=== PATIENT | male | born 1955 | race Caucasian/White ===

== ENCOUNTER → 2022-03-09 09:07 | Outpatient (BNVA) | payer MEDICARE, MEDICAID, SELFPAY | PROVIDERS: PCP Internal Medicine; Referring Provider Internal Medicine; Visit Provider Internal Medicine Cardiovascular Disease | DX: I48.0 Paroxysmal atrial fibrillation (principal); I10 Essential (primary) hypertension; Z86.73 Personal history of transient ischemic attack (TIA), and cerebral infarction without residual deficits; Z79.01 Long term (current) use of anticoagulants; Z79.899 Other long term (current) drug therapy | CPT/HCPCS: 93005; 99212 ==

== ENCOUNTER → 2022-07-29 09:20 | Outpatient (REF) | payer MEDICARE, MEDICAID, SELFPAY ==
--- NOTE | 2022-07-29 09:23 | CA_ITS ---
Transthoracic Echocardiogram Patient (Last, First, Middle): Enrike Benedict, Gender: Male Date of : 1955 Age: 67 Procedure Date: 07/29/2022 Procedure Type: Transthoracic Echocardiogram Location: OP Height: 165.1 cm Weight: 86.18 kg BSA: 1.94 m2 Heart Rate: 58 bpm BP: 120 / 72 mmHg Slag Expander: DOMINIC Referring MD: Barry Alvarez MD Deputy County Clerk: Barry Alvarez MD Symptoms: I48.0 - Paroxysmal atrial fibrillation Study Quality: Adequate ECG Rhythm: Bradycardia Conclusions: - 1. Normal LV systolic function with grade 2 diastolic dysfunction 2. Normal cardiac valvular Doppler 3. No gross pericardial effusion Findings Left Ventricle Normal left ventricular size, thickness, and systolic function. The visually estimated ejection fraction is between 60-65%. Spectral Doppler is indicative of a pseudonormal filling pattern. E/E prime ratio is >15, consistent with elevated filling pressures. Evidence suggests grade II (moderate) diastolic dysfunction. Right Ventricle Normal right ventricular cavity size and systolic function. Atria The left atrium is likely dilated. Interatrial shunt cannot be excluded. The right atrium is normal in size. Aortic Valve The aortic valve structure and function is likely normal. There is no aortic valve stenosis. There is no aortic valve regurgitation. Mitral Valve There is mild anterior and posterior mitral leaflet thickening. There is trace mitral valve regurgitation. There is no mitral valve stenosis. Pulmonic Valve The pulmonic valve was not well visualized. Tricuspid Valve Likely normal tricuspid valve structure and function. Tricuspid regurgitation envelope is inadequate for calculation of right ventricular systolic pressure. Normal right atrial pressure. Great Vessels All visible segments of the aorta are normal in size. The pulmonary artery was not well visualized. Venous The inferior vena cava is normal in size and collapses greater than 50% with inspiration. Pericardium/Pleural There is no evidence of pericardial effusion. Prior Study Comparison Changes noted compared to prior study dated: 08/23/2018. diastolic function appears to be grade 2 on this study Measurements 2D Linear Measurements IVSd: 1.11 0.6-0.9/0.6-1.0 cm LVIDd: 4.67 3.9-5.3/4.2-5.9 cm LVIDd Index: 2.41 2.4-3.2/2.2-3.1 cm/m2 LVIDs: 2.53 2.0-3.6 cm LVPWd: 0.81 0.7-1.1 cm LA Diam: 4.60 2.7-3.8/3.0-4.0 cm LAIDs Index: 2.37 1.5-2.3 cm/m2 LV Mass: 191.85 67-162/88-224 g LV Mass Index: 98.89 43-95/49-115 g/m2 LVOT Diam: 2.00 3.0+(-)1.3 cm 2D Systolic Function EF 4C: 57.00 >55% EF 2C: 67.70 >55% EF BiP: 62.10 >55% Mitral Valve MV Pk E: 0.97 MV PK A: 0.63 MV Decel Time: 140.00 E/A: 1.50 E'Lateral: 5.44 E'Medial: 5.87 E/E' Med: 16.50 E/E' Lat: 17.80 PHT: 41.00 MVA PHT: 5.37 Decel [place]: 6.91 Aortic Valve AoV Pk Cricket: 1.32 AoV Mn Cricket: 0.86 AoV VTI: 0.27 AoV Pk Grad: 7.00 Aov Mn Grad: 4.00 IMER Cont.VTI: 2.61 LVOT LVOT Pk Cricket: 1.07 LVOT Mn Cricket: 0.78 LVOT VTI: 0.22 LVOT Pk Grad: 5.00 LVOT Mn Grad: 3.00 LVOT Diam: 2.00 LVOT Area: 3.14 Diastolic Function MV Pk E: 0.97 MV Pk A: 0.63 E/A: 1.50 E'Medial: 5.87 E/E' Med: 16.50 E' Laterial: 5.44 E/E' Lat: 17.80 Right Ventricle TAPSE (mm): 22.30 TVS' Cricket: 15.50 Tricuspid Valve RA Press: 3.00 Great Vessels Aorta Sinus of Valsalva: 3.30 2.0-3.5 cm Ao Asc: 3.70 2.1-3.4 cm Pulmonary Valve PV Pk Cricekt: 1.28 Peak PV Grad: 7.00 Updated in Other Vendor System with Status of Final Barry Alvarez MD electronically signed on 07/30/2022 12:05:54 PM with status of Final
== END ==
LOC: HO.CARD 09:20
PROVIDERS: Visit Provider Internal Medicine Cardiovascular Disease
DX: I48.0 Paroxysmal atrial fibrillation (principal)
CPT/HCPCS: 93306

== ENCOUNTER 2022-12-30 03:11 | Observation (INO) | payer MEDICARE, MEDICAID, SELFPAY ==
[2022-12-30] VITALS (7 sets, daily range): BP systolic 106–153; BP diastolic 61–82; PULSE 55–70; RESP 9–19; TEMP 36.3–37.1; O2SAT 96–100; BMI 29.1; BMI 29.0
--- NOTE | 2022-12-30 | CA_ITS ---
Acquisition Time: 2022-12-30 12:25:24 Total Exercise Time: 00:05:05 Test Indications: CHEST PAIN Medications: SEE EMAR Protocol: ROBYN Max HR: 115 BPM 74% of Pred: 155 BPM Max BP: 162/080 mmHG Max Work Load: 7.0 METS The patient has nonspecific ST changes at baseline. With exercise, he did not develop any chest discomfort and did not develop any ischemic ECG changes. His functional capacity is fair for his age and this was a submaximal exercise Conclusion: Inconclusive exercise stress test. We will arrange a Lexiscan for the patient. Referred By: Héctor Bolden Overread By: Héctor Bolden
--- NOTE | 2022-12-30 | ECG_ITS ---
Test Reason : CHEST PAIN Blood Pressure : / mmHG Vent. Rate : 065 BPM Atrial Rate : 065 BPM P-R Int : 134 ms QRS Dur : 076 ms QT Int : 428 ms P-R-T Axes : 047 035 049 degrees QTc Int : 445 ms Normal sinus rhythm Nonspecific ST abnormality Abnormal ECG When compared with ECG of 30-JUL-2019 06:28, Premature supraventricular complexes are no longer Present Vent. rate has decreased BY 44 BPM Referred By: Generic ED Physician Electronically Signed By:Héctor Bolden
--- NOTE | 2022-12-30 | ECG_ITS ---
Test Reason : CHEST PAIN Blood Pressure : / mmHG Vent. Rate : 063 BPM Atrial Rate : 063 BPM P-R Int : 130 ms QRS Dur : 084 ms QT Int : 456 ms P-R-T Axes : 036 050 043 degrees QTc Int : 466 ms Normal sinus rhythm Nonspecific ST and T wave abnormality Abnormal ECG When compared with ECG of 30-DEC-2022 05:14, No significant change was found Referred By: Héctor Bolden Electronically Signed By:Héctor Bolden
--- NOTE | 2022-12-30 03:40 | ED.CHESTPAIN ---
HPI - Chest Pain General Chief Complaint: Chest Pain Stated Complaint: cp Time Seen by Provider: 12/30/22 03:30 History of Present Illness HPI narrative: Patient is 67 years old with history of alcohol abuse with history of DTs and seizures, paroxysmal atrial fibrillation on Eliquis with history of cerebellar stroke, hypertension comes here for left-sided chest pain when patient noticed left-sided chest pain while watching TV at rest patient feels heaviness in the chest with no radiation felt short of breath and slight dizzy denies any palpitation ,patient whenever had AFib never felt palpitations also. By the time patient came to the ER chest pain much better now no fever no cough at this time patient feeling much better now patient never had similar pain in the past no palpitation Related Data Home Medications Medication Instructions Recorded Confirmed atorvastatin 80 mg tablet 80 mg PO DAILY 09/07/20 12/27/22 Previous Rx's Medication Instructions Recorded amitriptyline 50 mg tablet 50 mg PO DAILY #90 tabs 11/16/21 apixaban 5 mg tablet (Eliquis) 5 mg PO BID #180 tabs 11/23/21 metoprolol tartrate 100 mg tablet 100 mg PO BID #180 tabs 11/23/21 levetiracetam 500 mg tablet 500 mg PO BID #180 tabs 04/12/22 levothyroxine 50 mcg tablet 50 mcg PO DAILY #90 tabs 04/12/22 temazepam 30 mg capsule 30 mg PO BEDTIME PRN sleep #30 caps 09/19/22 Allergies Allergy/AdvReac Type Severity Reaction Status Date / Time No Known Allergies Allergy Verified 12/27/22 09:34 Review of Systems Review of Systems: Yes all other systems are reviewed and are negative [facility] Past Medical History Medical History Atrial fibrillation Knee pain Paroxysmal atrial fibrillation Surgical History H/O laparoscopy History of ankle surgery History of appendectomy History of cardioversion History of tonsillectomy Family History Family History Father Hypertension Lymphoma Mother Hypertension Stroke Skin cancer Social History [facility] Alcohol intake: never Patient Tobacco Use Status: Never used Tobacco e-Cigarette/Vaping Use: Never Used Second Hand Smoke Exposure: No Advance Directives: No Advance Directives Information Provided: Yes service: No Current occupational status: disabled Cognitive needs: No Hearing needs: No Vision needs: Yes Physical Exam Vital Signs: Vital Signs: Last Vital Signs Temp 97.4 F 12/30/22 04:52 Pulse 62 12/30/22 06:22 Resp 12 12/30/22 06:22 BP 114/63 12/30/22 06:22 Pulse Ox 98 12/30/22 06:22 O2 Del Method 12/30/22 06:22 BMI result Body Mass Index 29.1 Appearance: Alert. Oriented X3. No acute distress. Eyes: PERRLA, No Nystagmus ENT: Pharynx normal. Oral Mucosa moist Neck: Normal inspection. Neck supple. CVS: Normal heart rate and rhythm. Pulses normal. Respiratory: No respiratory distress. Equal air entry bilateral, no wheezing/rales/rhonchi Abdomen: Soft and nontender. Bowel sounds are present, no mass palpable, no CVA tenderness Skin: Skin warm and dry. Normal skin color. Normal skin turgor. Extremities: No lower extremity edema. No calf tenderness Neuro: Oriented X 3. No motor deficit. Medications Administered Discontinued Medications Generic Name Dose Route Start Last Admin Trade Name Freq PRN Reason Stop Dose Admin Aspirin 162 mg 12/30/22 06:11 12/30/22 06:21 Aspirin Enteric Coated 81 Mg Tablet.Dr GRULLON 12/30/22 06:12 162 mg ONCE ONE Administration Medical Decision Making Medical Decision Making MDM Narrative: Patient receives significant alcohol abuse, alcoholic cardiomyopathy with with history of AFib on Eliquis , with history of cerebellar stroke history comes in for chest pain lasted for about 2 hours with with no significant ischemic changes in the EKG except for flat ST segment in infero-lat leads slightly elevated troponin unable to explain cause of chest pain likely ACS will admit patient Differential Diagnosis AFib/ACS/STEMI/non STEMI Consult Healthcare Provider Management of the patient was discussed with: Hospitalist Lab Data MDM Lab Attestation statement: I reviewed the patient's lab results. 12/30/22 03:39 12/30/22 03:39 Labs: Lab Results 12/30/22 12/30/22 12/30/22 Range/Units 03:39 03:39 03:39 WBC 10.1 (4.8-10.8) X10*3/uL RBC 4.38 L (4.60-5.80) X10*6/uL Hgb 13.8 L (14.0-18.0) g/dl Hct 40.3 L (42.0-52.0) % MCV 92.0 (80.0-98.0) fL MCH 31.5 (27.0-33.0) pg MCHC 34.2 (31.0-36.0) g/dl RDW 12.7 (11.0-16.0) % Plt Count 230 (160-400) X10*3/uL MPV 10.1 (9.4-12.4) fL Immature Gran % (Auto) 0.3 (0.0-0.4) % Neut % (Auto) 72.5 (45-73) % Lymph % (Auto) 17.8 L (20-40) % [place] % (Auto) 6.8 (2-11) % Eos % (Auto) 2.1 (0-4) % Baso % (Auto) 0.5 (0-2) % Lymph # (Auto) 1.8 (1.2-4.9) X10*3/uL [place] # (Auto) 0.7 (0.1-1.2) X10*3/uL Eos # (Auto) 0.2 (0.0-0.4) X10*3/uL Baso # (Auto) 0.1 (0.0-0.2) X10*3/uL Abs Immat Gran (auto) 0.03 (0.00-0.03) X10*3/uL Absolute Neuts (auto) 7.3 (2.0-8.3) x10*3/uL Absolute Nucleated RBC 0.000 (0.0-0.012) X10*3/uL Nucleated RBC % (auto) 0.0 (0.0-0.2) /100WBC Sodium 140 (135-145) mmol/L Potassium 4.7 (3.3-5.1) mmol/L Chloride 105 (96-108) mmol/L Carbon Dioxide 16 L (22-29) mmol/L Anion Gap 24 H (12-20) BUN 13 (9-16) mg/dL Creatinine 1.17 (0.5-1.4) mg/dL Estim Creat Clear Calc 61.1 Estimated GFR > 60 Random Glucose 131 H (60-115) mg/dL Calcium 9.4 (8.4-10.2) mg/dL Total Bilirubin 1.0 (0.0-1.0) mg/dL Direct Bilirubin 0.2 (0.0-0.5) mg/dL AST 36 (5-37) U/L ALT 22 (0-40) U/L Alkaline Phosphatase 46 (39-117) U/L Troponin I High Sens 7.7 (<3.5-35.0) ng/L Total Protein 7.5 (6.5-8.0) g/dL Albumin 4.3 (3.5-5.0) g/dL Lipase 28 (8-78) U/L Influenza Type A (PCR) (Negative) Influenza Type B (PCR) (Negative) RSV RNA Qual (PCR) (Negative) SARS-CoV-2 RNA (RT-PCR) (Negative) 12/30/22 12/30/22 Range/Units 03:39 05:19 WBC (4.8-10.8) X10*3/uL RBC (4.60-5.80) X10*6/uL Hgb (14.0-18.0) g/dl Hct (42.0-52.0) % MCV (80.0-98.0) fL MCH (27.0-33.0) pg MCHC (31.0-36.0) g/dl RDW (11.0-16.0) % Plt Count (160-400) X10*3/uL MPV (9.4-12.4) fL Immature Gran % (Auto) (0.0-0.4) % Neut % (Auto) (45-73) % Lymph % (Auto) (20-40) % [place] % (Auto) (2-11) % Eos % (Auto) (0-4) % Baso % (Auto) (0-2) % Lymph # (Auto) (1.2-4.9) X10*3/uL [place] # (Auto) (0.1-1.2) X10*3/uL Eos # (Auto) (0.0-0.4) X10*3/uL Baso # (Auto) (0.0-0.2) X10*3/uL Abs Immat Gran (auto) (0.00-0.03) X10*3/uL Absolute Neuts (auto) (2.0-8.3) x10*3/uL Absolute Nucleated RBC (0.0-0.012) X10*3/uL Nucleated RBC % (auto) (0.0-0.2) /100WBC Sodium (135-145) mmol/L Potassium (3.3-5.1) mmol/L Chloride (96-108) mmol/L Carbon Dioxide (22-29) mmol/L Anion Gap (12-20) BUN (9-16) mg/dL Creatinine (0.5-1.4) mg/dL Estim Creat Clear Calc Estimated GFR Random Glucose (60-115) mg/dL Calcium (8.4-10.2) mg/dL Total Bilirubin (0.0-1.0) mg/dL Direct Bilirubin (0.0-0.5) mg/dL AST (5-37) U/L ALT (0-40) U/L Alkaline Phosphatase (39-117) U/L Troponin I High Sens 12.2 D (<3.5-35.0) ng/L Total Protein (6.5-8.0) g/dL Albumin (3.5-5.0) g/dL Lipase (8-78) U/L Influenza Type A (PCR) NEGATIVE (Negative) Influenza Type B (PCR) NEGATIVE (Negative) RSV RNA Qual (PCR) NEGATIVE (Negative) SARS-CoV-2 RNA (RT-PCR) NEGATIVE (Negative) Independent Interpretation I performed an independent interpretation of an: EKG Interpretation: Normal sinus rhythm heart rate 65 beats per minute no interval normal axis flat ST T wave changes in inferior lateral leads no STEMI Discharge Plan Discharge Clinical Impression: ACS (acute coronary syndrome) Patient Disposition: Admitted As Inpatient
[2022-12-30 03:43] LABS: MANUAL DIFF FLAG NO
[2022-12-30 03:44] LABS: Basophils Absolute Auto 0.1 X10*3/uL (0.0-0.2); Basophils Percent Auto 0.5 % (0-2); Eosinophils Absolute Auto 0.2 X10*3/uL (0.0-0.4); Eosinophils Percent Auto 2.1 % (0-4); Hematocrit 40.3 % (42.0-52.0); Hemoglobin 13.8 g/dl (14.0-18.0); Imm Gran Abs Auto 0.03 X10*3/uL (0.00-0.03); Imm Gran Pct Auto 0.3 % (0.0-0.4); Lymphocytes Absolute Auto 1.8 X10*3/uL (1.2-4.9); Lymphocytes Percent Auto 17.8 % (20-40); Mean Corpuscular HGB Conc 34.2 g/dl (31.0-36.0); Mean Corpuscular Hemoglobin 31.5 pg (27.0-33.0); Mean Platelet Volume 10.1 fL (9.4-12.4); Monocytes Absolute Auto 0.7 X10*3/uL (0.1-1.2); Monocytes Percent Auto 6.8 % (2-11); Neutrophils Absolute Auto 7.3 x10*3/uL (2.0-8.3); Neutrophils Percent Auto 72.5 % (45-73); Platelet Count 230 X10*3/uL (160-400); Red Blood Count 4.38 X10*6/uL (4.60-5.80); Red Cell Distribution Width 12.7 % (11.0-16.0); White Blood Count 10.1 X10*3/uL (4.8-10.8)
[2022-12-30 04:11] LABS: Alanine Aminotransferase 22 U/L (0-40); Albumin Level 4.3 g/dL (3.5-5.0); Alkaline Phosphatase 46 U/L (39-117); Anion Gap 24 (12-20); Aspartate Amino Transferase 36 U/L (5-37); Bilirubin Direct 0.2 mg/dL (0.0-0.5); Blood Urea Nitrogen 13 mg/dL (9-16); Calcium 9.4 mg/dL (8.4-10.2); Carbon Dioxide 16 mmol/L (22-29); Chloride 105 mmol/L (96-108); Creatinine Clr Calc Pharmacy 61.1; Estimated Glomerular Filt Rate > 60; Glucose Random 131 mg/dL (60-115); Lipase 28 U/L (8-78); Potassium 4.7 mmol/L (3.3-5.1); Sodium 140 mmol/L (135-145); Total Protein 7.5 g/dL (6.5-8.0)
[2022-12-30 04:14] LABS: Troponin-I High Sensitivity 7.7 ng/L (<3.5-35.0)
[2022-12-30 04:20] LABS: Influenza A PCR NEGATIVE (Negative); Influenza B PCR NEGATIVE (Negative); Resp Syncy Virus RNA Qual PCR NEGATIVE (Negative); SARS COV2 PCR INHOUSE NEGATIVE (Negative)
--- NOTE | 2022-12-30 05:02 | ECG_ITS ---
Test Reason : REPEAT Blood Pressure : / mmHG Vent. Rate : 058 BPM Atrial Rate : 058 BPM P-R Int : 126 ms QRS Dur : 076 ms QT Int : 454 ms P-R-T Axes : 010 035 049 degrees QTc Int : 445 ms Sinus bradycardia Nonspecific ST abnormality Abnormal ECG When compared with ECG of 30-DEC-2022 03:25, No significant change was found Referred By: All Mcadams Electronically Signed By:Héctor Bolden
[2022-12-30 05:43] LABS: Troponin-I High Sensitivity 12.2 ng/L (<3.5-35.0)
[2022-12-30] MEDS: Aspirin Enteric Coated 81 MG TABLET.DR 162 MG PO (06:21)
--- NOTE | 2022-12-30 08:16 | PHA.MEDREC ---
Pharmacy Consult ? Medication Reconciliation Pharmacy has completed the medication reconciliation.
--- NOTE | 2022-12-30 08:44 | P.HPHOSP_ITS ---
History of Present Illness Date of Service: 12/30/22 Chief Complaint: left sided chest pain This is a 67 yo M with a PMH PAF on Eliquis, Prior cerebellarl CVA in 2018, Diastolic CHF, prior alcohol abuse (last drink 5+ years ago per pt) who presents to the ED with left-sided, pressure like in nature, severe in intensity, non- radiating, which began about 6 hours prior to admission. The patient reports that he sleeps during the day time and is typically awake at night. About 2 AM on the day of admission, he went to check in on his cats and furnace. He reports feeling left-sided chest pain which continued to worsen. Resting did not seem to improve the pain. He states that he last had this type of pain about 2-3 years ago. When the pain did not subside, he decided to come to the ED. He denies chest pain in the interim his last last episode 2-3 years ago. He denies any shortness of breath. Denies any PND or orthopnea. He dneies any palpitations, although he does admit to some dizziness which he states has improved. Currently, he denies any chest pain and states it feels more like soreness. Work up in the ED revealed an EKG with NSR and non-specific ST changes. Troponins increased from 7.7 to 12.2. Given his presentation and baseline history + risk factors, the patient will not be placed under observation with cardiology consult. He has been given asa in the ED. Review of Systems Review of Systems: negative except HPI [facility] Medical History Atrial fibrillation Knee pain Paroxysmal atrial fibrillation Family History Father Hypertension Lymphoma Mother Hypertension Stroke Skin cancer Surgical History H/O laparoscopy History of ankle surgery History of appendectomy History of cardioversion History of tonsillectomy Social History Housing: Condominium Alcohol intake: never Patient Tobacco Use Status: Never used Tobacco e-Cigarette/Vaping Use: Never Used Second Hand Smoke Exposure: No Advance Directives: No Advance Directives Information Provided: Yes service: No Current occupational status: disabled Cognitive needs: No Hearing needs: No Vision needs: Yes Meds Allergies Allergy/AdvReac Type Severity Reaction Status Date / Time No Known Allergies Allergy Verified 12/27/22 09:34 Active Medications: Current Medications Sodium Chloride (0.9 % Sodium Chloride Flush 3 Ml Syringe) [facility] Home Medications Medication Instructions Recorded Confirmed Last Taken Type multivitamin 1 tab PO DAILY 12/30/22 12/30/22 Unknown History thiamine HCl (vitamin B1) 100 mg 100 mg PO DAILY 12/30/22 12/30/22 Unknown History tablet Physical Exam Vital Signs and Narrative: Vital Signs: Last Vital Signs Temp 97.4 F 12/30/22 04:52 Pulse 62 12/30/22 06:22 Resp 12 12/30/22 06:22 BP 114/63 12/30/22 06:22 Pulse Ox 98 12/30/22 06:22 O2 Del Method 12/30/22 06:22 BMI result Body Mass Index 29.1 Const: Other: Constitutional - Awake and Alert, No apparent distress Eyes - PERRLA, EOMI Cardiovascular - S1S2, RRR, No edema Respiratory - Normal lung expansion, Normal respiratory effort, No respiratory distress, CTA bilaterally Gastrointestinal - NT / ND; +BS; No rebound or guarding - No CVA tenderness Extremities - no calf tenderness bilaterally, no swelling Musculoskeletal - Normal inspection, normal ROM Skin - Warm/Dry Neurological - Alert & oriented x3 Psychological - Appropriate affect Results Labs 12/30/22 03:39 12/30/22 03:39 Labs: Laboratory Results - last 24 hr 12/30/22 12/30/22 12/30/22 03:39 03:39 03:39 MCV 92.0 MCH 31.5 MCHC 34.2 RDW 12.7 Plt Count 230 MPV 10.1 Immature Gran % (Auto) 0.3 Neut % (Auto) 72.5 Lymph % (Auto) 17.8 L [place] % (Auto) 6.8 Eos % (Auto) 2.1 Baso % (Auto) 0.5 Lymph # (Auto) 1.8 [place] # (Auto) 0.7 Eos # (Auto) 0.2 Baso # (Auto) 0.1 Abs Immat Gran (auto) 0.03 Absolute Neuts (auto) 7.3 Absolute Nucleated RBC 0.000 Nucleated RBC % (auto) 0.0 Anion Gap 24 H Estim Creat Clear Calc 61.1 Estimated GFR > 60 Random Glucose 131 H Calcium 9.4 Total Bilirubin 1.0 Direct Bilirubin 0.2 AST 36 ALT 22 Alkaline Phosphatase 46 Troponin I High Sens 7.7 Total Protein 7.5 Albumin 4.3 Lipase 28 Influenza Type A (PCR) Influenza Type B (PCR) RSV RNA Qual (PCR) SARS-CoV-2 RNA (RT-PCR) 12/30/22 12/30/22 03:39 05:19 MCV MCH MCHC RDW Plt Count MPV Immature Gran % (Auto) Neut % (Auto) Lymph % (Auto) [place] % (Auto) Eos % (Auto) Baso % (Auto) Lymph # (Auto) [place] # (Auto) Eos # (Auto) Baso # (Auto) Abs Immat Gran (auto) Absolute Neuts (auto) Absolute Nucleated RBC Nucleated RBC % (auto) Anion Gap Estim Creat Clear Calc Estimated GFR Random Glucose Calcium Total Bilirubin Direct Bilirubin AST ALT Alkaline Phosphatase Troponin I High Sens 12.2 D Total Protein Albumin Lipase Influenza Type A (PCR) NEGATIVE Influenza Type B (PCR) NEGATIVE RSV RNA Qual (PCR) NEGATIVE SARS-CoV-2 RNA (RT-PCR) NEGATIVE Assessment and Plan (1) Chest pain: Status: Acute Plan This is a 67 yo M with a PMH PAF on Eliquis, Prior cerebellarl CVA in 2018, , Diastolic CHF, prior alcohol abuse (last drink 5+ years ago per pt) who presents to the ED with left-sided, pressure like in nature, severe in intensity, non- radiating, which began about 6 hours prior to admission. Work up in the ED shows non-specific EKG changes and troponins which are negative. Given his baseline history + presenting symptoms, he will be placed under obs for further monitoring / evaluation. 1. Chest pain unclear etiology, but given risk factors for CAD, will continue with further eval Repeat HS trop-I, monitor on tele, consult cardiology 2. Anion Gap, Metabolic acidosis repeat BMP now 3. Paroxsymal A. Fib previously on amio, but discontinued last year continue metoprolol and eliquis 4. Hypothyroidism synthroid Full Code DVT pptx, Eliquis Time Spent With Patient Time: Total time managing care of this patient today ____ minutes. Quality Stroke Does the patient have a stroke diagnosis?: No VTE Prior VTE?: No VTE Risk Level:: Medical - moderate - high VTE Device Contraindication: Treatment Not Indicated VTE Drug Contraindication: N/A - Med Ordered
[2022-12-30] MEDS: Multivitamin TABLET 1 TAB PO (09:21)
[2022-12-30] MEDS: Thiamine HCL 100 MG TABLET PO (09:21)
[2022-12-30 09:59] LABS: Anion Gap 19 (12-20); Blood Urea Nitrogen 11 mg/dL (9-16); Calcium 9.1 mg/dL (8.4-10.2); Carbon Dioxide 20 mmol/L (22-29); Chloride 106 mmol/L (96-108); Creatinine Clr Calc Pharmacy 77.7; Estimated Glomerular Filt Rate > 60; Glucose Random 76 mg/dL (60-115); Potassium 4.3 mmol/L (3.3-5.1); Sodium 141 mmol/L (135-145)
[2022-12-30 10:07] LABS: Troponin-I High Sensitivity 18.9 ng/L (<3.5-35.0)
--- NOTE | 2022-12-30 11:53 | P.CONCA_ITS ---
History of Present Illness History of Present Illness Date of Service: 12/30/22 Requesting physician: Dmitri Raymundo Chief complaint: cp Narrative: [age] gentleman who is presenting with chest pain. He has background history of paroxysmal atrial fibrillation and has been on apixaban and metoprolol tartrate. He said he woke up at 02:00 which is usual for him and went to feed his mother's cats. He said while doing minimal activities he has suddenly felt chest tightness. He said he laid down but the symptoms were worse with lying down so he was walking around to see if it improves. He said the symptoms lasted at least 2 hours. In this time he came to the emergency department. He did not have any dynamic EKG changes. His high sensitivity troponin levels were normal. He said after couple of hours of chest discomfort his chest pain went away. He has been experiencing reflux like symptoms and burping a lot recently. After discussion with to him for exercise stress test. He was able to exercise for 5 minutes on the treadmill. He had nonspecific ST changes which in fact improved with exercise. He was feeling shortness of breath and fatigue but had no chest tightness. His blood pressure response was also normal. He underwent echocardiography which showed hyperdynamic LV function. Basal inferior wall motion was difficult to rule out. Overall he has been pain-free since his initial presentation. [facility] Past Medical History Medical History Atrial fibrillation Knee pain Paroxysmal atrial fibrillation Family History Family History Father Hypertension Lymphoma Mother Hypertension Stroke Skin cancer Surgical History Surgical History H/O laparoscopy History of ankle surgery History of appendectomy History of cardioversion History of tonsillectomy Social History Social History Housing: Condominium Alcohol intake: never Patient Tobacco Use Status: Never used Tobacco e-Cigarette/Vaping Use: Never Used Second Hand Smoke Exposure: No Advance Directives: No Advance Directives Information Provided: Yes Nutrition Risks: No Nutritional Risk service: No Current occupational status: disabled Cognitive needs: No Hearing needs: No Vision needs: Yes Meds Allergies Allergy/AdvReac Type Severity Reaction Status Date / Time No Known Allergies Allergy Verified 12/27/22 09:34 Active Medications: Current Medications Amitriptyline HCl (Amitriptyline Hcl 50 Mg Tablet) 50 mg PO DAILY [facility] Last Admin: 12/30/22 09:27 Dose: Not Given Apixaban (Apixaban 5 Mg Tablet) 5 mg PO BID [facility] Last Admin: 12/30/22 09:28 Dose: Not Given Levetiracetam (Levetiracetam 500 Mg Tablet) 500 mg PO BID [facility] Last Admin: 12/30/22 09:28 Dose: Not Given Levothyroxine Sodium (Levothyroxine Sodium 50 Mcg Tablet) 50 mcg PO DAILY@0600 [facility] Last Admin: 12/30/22 09:28 Dose: Not Given Metoprolol Tartrate (Metoprolol Tartrate 100 Mg Tablet) 100 mg PO BID [facility]; Protocol Last Admin: 12/30/22 09:21 Dose: Not Given Multivitamins/Vitamin C (Multivitamin Tablet) 1 tab PO DAILY [facility] Last Admin: 12/30/22 09:21 Dose: 1 tab Sodium Chloride (0.9 % Sodium Chloride Flush 3 Ml Syringe) 3 ml IVFLUSH [facility] Thiamine HCl (Thiamine Hcl 100 Mg Tablet) 100 mg PO DAILY [facility] Last Admin: 12/30/22 09:21 Dose: 100 mg Home Medications Medication Instructions Recorded Confirmed Last Taken Type multivitamin 1 tab PO DAILY 12/30/22 12/30/22 Unknown History thiamine HCl (vitamin B1) 100 mg 100 mg PO DAILY 12/30/22 12/30/22 Unknown History tablet Physical Exam Vital Signs: Vital Signs: Last Vital Signs Temp 97.9 F 12/30/22 10:57 Pulse 63 12/30/22 10:57 Resp 17 12/30/22 10:57 BP 106/61 12/30/22 10:57 Pulse Ox 97 12/30/22 10:57 O2 Del Method 12/30/22 10:57 BMI result Body Mass Index 29.1 GENERAL APPEARANCE: in no acute distress, pleasant. NECK: no carotid bruit, no jugular venous distention. SKIN: no suspicious lesions, warm and dry. HEART: no murmurs, regular rate and rhythm. LUNGS: clear to auscultation bilaterally. ABDOMEN: soft, nontender. EXTREMITIES: no edema. PERIPHERAL PULSES: equal. NEUROLOGIC: No gross deficits, AAO X 3 Objective Labs and Meds 12/30/22 03:39 12/30/22 09:36 Lab results: Laboratory Results - last 24 hr 12/30/22 12/30/22 12/30/22 03:39 03:39 03:39 WBC 10.1 RBC 4.38 L Hgb 13.8 L Hct 40.3 L MCV 92.0 MCH 31.5 MCHC 34.2 RDW 12.7 Plt Count 230 MPV 10.1 Immature Gran % (Auto) 0.3 Neut % (Auto) 72.5 Lymph % (Auto) 17.8 L [place] % (Auto) 6.8 Eos % (Auto) 2.1 Baso % (Auto) 0.5 Lymph # (Auto) 1.8 [place] # (Auto) 0.7 Eos # (Auto) 0.2 Baso # (Auto) 0.1 Abs Immat Gran (auto) 0.03 Absolute Neuts (auto) 7.3 Absolute Nucleated RBC 0.000 Nucleated RBC % (auto) 0.0 Sodium 140 Potassium 4.7 Chloride 105 Carbon Dioxide 16 L Anion Gap 24 H BUN 13 Creatinine 1.17 Estim Creat Clear Calc 61.1 Estimated GFR > 60 Random Glucose 131 H Calcium 9.4 Total Bilirubin 1.0 Direct Bilirubin 0.2 AST 36 ALT 22 Alkaline Phosphatase 46 Troponin I High Sens 7.7 Total Protein 7.5 Albumin 4.3 Lipase 28 Influenza Type A (PCR) Influenza Type B (PCR) RSV RNA Qual (PCR) SARS-CoV-2 RNA (RT-PCR) 12/30/22 12/30/22 12/30/22 03:39 05:19 09:36 WBC RBC Hgb Hct MCV MCH MCHC RDW Plt Count MPV Immature Gran % (Auto) Neut % (Auto) Lymph % (Auto) [place] % (Auto) Eos % (Auto) Baso % (Auto) Lymph # (Auto) [place] # (Auto) Eos # (Auto) Baso # (Auto) Abs Immat Gran (auto) Absolute Neuts (auto) Absolute Nucleated RBC Nucleated RBC % (auto) Sodium Potassium Chloride Carbon Dioxide Anion Gap BUN Creatinine Estim Creat Clear Calc Estimated GFR Random Glucose Calcium Total Bilirubin Direct Bilirubin AST ALT Alkaline Phosphatase Troponin I High Sens 12.2 D 18.9 D Total Protein Albumin Lipase Influenza Type A (PCR) NEGATIVE Influenza Type B (PCR) NEGATIVE RSV RNA Qual (PCR) NEGATIVE SARS-CoV-2 RNA (RT-PCR) NEGATIVE 12/30/22 09:36 WBC RBC Hgb Hct MCV MCH MCHC RDW Plt Count MPV Immature Gran % (Auto) Neut % (Auto) Lymph % (Auto) [place] % (Auto) Eos % (Auto) Baso % (Auto) Lymph # (Auto) [place] # (Auto) Eos # (Auto) Baso # (Auto) Abs Immat Gran (auto) Absolute Neuts (auto) Absolute Nucleated RBC Nucleated RBC % (auto) Sodium 141 Potassium 4.3 Chloride 106 Carbon Dioxide 20 L Anion Gap 19 BUN 11 Creatinine 0.92 Estim Creat Clear Calc 77.7 Estimated GFR > 60 Random Glucose 76 Calcium 9.1 Total Bilirubin Direct Bilirubin AST ALT Alkaline Phosphatase Troponin I High Sens Total Protein Albumin Lipase Influenza Type A (PCR) Influenza Type B (PCR) RSV RNA Qual (PCR) SARS-CoV-2 RNA (RT-PCR) Assessment and Plan (1) Chest pain: Status: Acute Plan Pleasant 67 gentleman presenting with chest discomfort. He has background history of paroxysmal atrial fibrillation and has been on Eliquis and metoprolol. EKG had nonspecific ST changes which were new but the last comparison was from 2019. On treadmill he did not have chest discomfort. He mainly stop because of fatigue and shortness of breath. In his day-to-day life he does not exercise at all. So far his biomarker rise has not been impressive. Echocardiography has shown hyperdynamic left ventricular function with question of basal wall motion abnormality in the inferior wall. His blood pressure control is good. I think he can return home and we can arrange a Lexiscan for him as he has functional limitation due to deconditioning. If he develops recurrent pain then he should come back to the hospital. In that case next step will be to do diagnostic angiography. Currently I think his presentation is unlikely to be ACS and likely related to acid reflux. He should be given proton pump inhibitor discharge. Thank you for allowing me to participate in the care of your patient. Please feel free to contact me if you have any questions. Time Spent With Patient Time: Total time managing care of this patient today ____ minutes. Procedures Date of Service Date of Service: 12/30/22
--- NOTE | 2022-12-30 12:29 | CA_ITS ---
Transthoracic Echocardiogram Patient (Last, First, Middle): Enrike Benedict, Gender: Male Date of : 1955 Age: 67 Procedure Date: 12/30/2022 Procedure Type: Transthoracic Echocardiogram Location: ER Height: 165.1 cm Weight: 79.38 kg BSA: 1.87 m2 Heart Rate: 65 bpm BP: 106 / 61 mmHg Integrated Circuit Design Engineer: SB Referring MD: Dmitri Raymundo MD Symptoms: CHEST PAIN Study Quality: Adequate ECG Rhythm: Sinus Conclusions: - Normal left ventricular cavity size. The left ventricular systolic function is hyperdynamic. The visually estimated ejection fraction is >70%. - Elevated filling pressures. - Cannot rule out basal inferior wall motion abnormality. - There is mild dilatation of the ascending aorta measuring 3.90 cm. Findings Left Ventricle Normal left ventricular cavity size. The left ventricular systolic function is hyperdynamic. The visually estimated ejection fraction is >70%. Abnormal diastolic function is noted. Spectral Doppler is indicative of a pseudonormal filling pattern. Elevated filling pressures. There is mild septal asymmetric hypertrophy. Normal global longitudinal strain. Cannot rule out basal inferior wall motion abnormality. Right Ventricle Normal right ventricular cavity size and systolic function. Atria The left atrium is likely dilated. The atrial septum has a dumbell appearance. There is no evidence of interatrial shunt. The right atrium is normal in size. Aortic Valve Normal aortic valve structure and function. There is no aortic valve stenosis. There is no aortic valve regurgitation. Mitral Valve Normal mitral valve structure and function. There is no mitral valve regurgitation. There is no mitral valve stenosis. Pulmonic Valve Normal pulmonic valve structure and function. There is no pulmonic valve regurgitation. Tricuspid Valve Normal tricuspid valve structure and function. There is no tricuspid valve regurgitation. Tricuspid regurgitation envelope is inadequate for calculation of right ventricular systolic pressure. Normal right atrial pressure. Great Vessels There is mild dilatation of the ascending aorta measuring 3.90 cm. The visualized portions of the pulmonary artery and branches are normal. Venous The inferior vena cava is normal in size and collapses greater than 50% with inspiration. Pericardium/Pleural There is no evidence of pericardial effusion. Prior Study Comparison Changes noted compared to prior study dated: 07/29/2022. Hyperdynamic LV function. Cannot rule out basal inferior wall motion abnormality. Measurements 2D Linear Measurements IVSd: 1.22 0.6-0.9/0.6-1.0 cm LVIDd: 4.35 3.9-5.3/4.2-5.9 cm LVIDd Index: 2.33 2.4-3.2/2.2-3.1 cm/m2 LVIDs: 2.26 2.0-3.6 cm LVPWd: 0.95 0.7-1.1 cm LA Diam: 4.40 2.7-3.8/3.0-4.0 cm LAIDs Index: 2.35 1.5-2.3 cm/m2 LV Mass: 202.65 67-162/88-224 g LV Mass Index: 108.37 43-95/49-115 g/m2 LVOT Diam: 2.10 3.0+(-)1.3 cm 2D Systolic Function EF 4C: 71.70 >55% EF 2C: 68.90 >55% EF BiP: 70.10 >55% Mitral Valve MV Pk E: 0.86 MV PK A: 0.50 MV Decel Time: 175.00 E/A: 1.70 E'Lateral: 5.77 E'Medial: 6.20 E/E' Med: 13.80 E/E' Lat: 14.90 PHT: 51.00 MVA PHT: 4.[address] [place]: 4.89 Aortic Valve AoV Pk Cricket: 1.46 AoV Pk Grad: 9.00 IMER: 3.48 LVOT LVOT Pk Cricket: 1.47 LVOT Mn Cricket: 0.95 LVOT VTI: 0.27 LVOT Pk Grad: 9.00 LVOT Mn Grad: 4.00 LVOT Diam: 2.10 LVOT Area: 3.46 Diastolic Function MV Pk E: 0.86 MV Pk A: 0.50 E/A: 1.70 E'Medial: 6.20 E/E' Med: 13.80 E' Laterial: 5.77 E/E' Lat: 14.90 Right Ventricle TAPSE (mm): 19.80 TVS' Cricket: 16.00 Tricuspid Valve RA Press: 3.00 Great Vessels Aorta Sinus of Valsalva: 3.10 2.0-3.5 cm Ao Asc: 3.90 2.1-3.4 cm Ao Desc: 2.80 Pulmonary Valve PV Pk Cricket: 1.30 Peak PV Grad: 7.00 Updated in Other Vendor System with Status of Final Héctor Bolden MD electronically signed on 12/30/2022 2:21:09 PM with status of Final
[2022-12-30] MEDS: 0.9 % Sodium Chloride Flush 3 ML SYRINGE IVFLUSH ×2 (16:15→20:49)
[2022-12-30] MEDS: levETIRAcetam 500 MG TABLET PO (20:48)
[2022-12-30] MEDS: Apixaban 5 MG TABLET PO (20:48)
[2022-12-30] MEDS: Metoprolol Tartrate 100 MG TABLET PO (20:48)
[2022-12-31] VITALS: BP 132/69; PULSE 55; RESP 14; TEMP 36.8; O2SAT 98
[2022-12-31 04:00] VITALS: BP 146/72; PULSE 55; RESP 14; TEMP 36.8; O2SAT 99
[2022-12-31] MEDS: Levothyroxine Sodium 50 MCG TABLET PO (05:20)
[2022-12-31 08:00] VITALS: BP 175/78; PULSE 60; RESP 18; TEMP 36.7; O2SAT 97
--- NOTE | 2022-12-31 08:23 | P.DS_ITS ---
DS: Providers Provider Date of Service: 12/31/22 Date of admission: 12/30/22 08:41 Primary care physician: Reynaldo Agureo MD Consults: 12/30/22 08:41 Consult to Cardiology Routine Consulting Provider: Héctor Bolden Reason for consultation: chest pain, history of a. fib and diastolic chf Attending physician on discharge: Kwasi Infante Discharging clinician: [place] DS: Diagnosis Discharge Diagnosis (1) Chest pain: Status: Acute DS: Summary Hospital Course Hospital Course: This is a 67 yo M with a PMH PAF on Eliquis, Prior cerebellarl CVA in 2018, Diastolic CHF, prior alcohol abuse (last drink 5+ years ago per pt) who presents to the ED with left-sided, pressure like in nature, severe in intensity, non- radiating, which began about 6 hours prior to admission. The patient reports that he sleeps during the day time and is typically awake at night. About 2 AM on the day of admission, he went to check in on his cats and furnace. He reports feeling left-sided chest pain which continued to worsen. Resting did not seem to improve the pain. He states that he last had this type of pain about 2-3 years ago. When the pain did not subside, he decided to come to the ED. He denies chest pain in the interim his last last episode 2-3 years ago. He denies any shortness of breath. Denies any PND or orthopnea. He dneies any palpitations, although he does admit to some dizziness which he states has improved. Currently, he denies any chest pain and states it feels more like soreness. Work up in the ED revealed an EKG with NSR and non-specific ST changes. Troponins increased from 7.7 to 12.2. Given his presentation and baseline history + risk factors, the patient will not be placed under observation with cardiology consult. He has been given asa in the ED. Chest pain. unclear etiology. normal ETT, plan for o/p Lexiscan. cardio rec starting PPI as symptoms may be related to GERD Anion Gap, Metabolic acidosis. Resolved Paroxsymal A. Fib, previously on amio, but discontinued last year. continue metoprolol and eliquis Hypothyroidism. synthroid Time Spent with Patient Time attestation: Total time managing care of this patient today ____ minutes. Discharge coordination time: Greater than 30 minutes Quality: Safe Use of Opioids Does Pt have an Active Cancer Diagnosis on the Problem List?: No Quality: Stroke Does the patient have a stroke diagnosis?: No Physical Exam Vital Signs: Vital Signs: Last Vital Signs Temp 98.1 F 12/31/22 08:00 Pulse 60 12/31/22 08:00 Resp 18 12/31/22 08:00 BP 175/78 H 12/31/22 08:00 Pulse Ox 97 12/31/22 08:00 O2 Del Method 12/31/22 08:00 BMI result Body Mass Index 29.0 Appearing in no acute distress head is normocephalic atraumatic eyes pupils are PERRLA sclera is anicteric mouth throat mucous membranes are intact and moist neck is supple no lymphadenopathy, no JVD noted lung sounds are clear to auscultation heart regular rate rhythm, clear S1, S2 positive bowel sounds, abdomen is soft, nontender neuro patient is alert x3, no focal deficits DS: Data Data Completed and Pending Labs on day of discharge: Laboratory Results - last 24 hr 12/30/22 12/30/22 09:36 09:36 Sodium 141 Potassium 4.3 Chloride 106 Carbon Dioxide 20 L Anion Gap 19 BUN 11 Creatinine 0.92 Estim Creat Clear Calc 77.7 Estimated GFR > 60 Random Glucose 76 Calcium 9.1 Troponin I High Sens 18.9 D Discharge Plan Discharge Anticipated Discharge Date/Time: 12/31/22 08:21 Patient Disposition: Home, Self-Care Discharge Diagnosis: Chest pain Referrals: Reynaldo Aguero MD [Primary Care Provider] - 1 Week Héctor Bolden MD [Physician] - 1 Week Discharge Medications: Continued amitriptyline 50 mg tablet 50 mg PO DAILY Qty: 90 8RF Eliquis 5 mg tablet 5 mg PO BID Qty: 180 8RF metoprolol tartrate 100 mg tablet 100 mg PO BID Qty: 180 8RF levothyroxine 50 mcg tablet 50 mcg PO DAILY Qty: 90 8RF levetiracetam 500 mg tablet 500 mg PO BID Qty: 180 8RF temazepam 30 mg capsule 30 mg PO BEDTIME PRN (Reason: sleep) Qty: 30 5RF multivitamin Tablet 1 tab PO DAILY thiamine HCl (vitamin B1) 100 mg Tablet 100 mg PO DAILY Discharge Orders: Discharge Order (Routine); Ordered 12/31/22 Ordered By: [place] East Diet: Advance to usual diet Activity on Discharge: As tolerated Stand Alone Forms: Patient Portal Discharge page Care Plan Goals: NO further episodes of chest pain Health Concerns: Chest pain Plan of Treatment: Follow up with senior storage administrator for further outpatient workup Assessment: See discharge summary
[2022-12-31] MEDS: levETIRAcetam 500 MG TABLET PO (08:42)
[2022-12-31] MEDS: 0.9 % Sodium Chloride Flush 3 ML SYRINGE IVFLUSH (08:42)
[2022-12-31] MEDS: Multivitamin TABLET 1 TAB PO (08:42)
[2022-12-31] MEDS: Metoprolol Tartrate 100 MG TABLET PO (08:42)
[2022-12-31] MEDS: Apixaban 5 MG TABLET PO (08:42)
[2022-12-31] MEDS: Amitriptyline HCl 50 MG TABLET PO (08:42)
[2022-12-31] MEDS: Thiamine HCL 100 MG TABLET PO (08:42)
--- NOTE | 2022-12-31 10:07 | PC.NURSE ---
Patient refused EKG ordered for this morning, requested discharge paperwork stating his ride is waiting and will leave shortly.
--- NOTE | 2022-12-31 10:36 | MHC.CM.PN ---
MD order for D/C prior to CM interview. MD order for home, self care. CM acknowledge.
== END 2022-12-31 10:39 | disposition home or self-care (01) ==
LOC: HO.ED 07:23 → HO.EDOVER 08:47 → HO.IMC 16:14
PROVIDERS: Admitting Provider Family Medicine; Emergency Provider Internal Medicine; PCP Internal Medicine Medical Oncology; Visit Provider Nurse Practitioner Acute Care
DX: R07.9 Chest pain, unspecified (principal); I48.0 Paroxysmal atrial fibrillation; E03.9 Hypothyroidism, unspecified; M25.569 Pain in unspecified knee; I11.0 Hypertensive heart disease with heart failure; I50.32 Chronic diastolic (congestive) heart failure; Z86.73 Personal history of transient ischemic attack (TIA), and cerebral infarction without residual deficits; Z20.822 Contact with and (suspected) exposure to COVID-19
CPT/HCPCS: 0241U; 36415; 80048; 80076; 83690; 84484; 85025; 93005; 93017; 93306; 99222; 99285

== ENCOUNTER 2023-05-25 13:18 | Outpatient (AMB) | payer MEDICARE, MEDICAID, SELFPAY ==
[2023-05-25 13:39] VITALS: BP 148/72; PULSE 135; BMI 28.6
--- NOTE | 2023-05-25 13:39 | A.OFFVIS_ITS ---
Intake Vital Signs 05/25/23 13:39 Height 5 ft 5 in Weight 171 lb 15.369 oz BMI 28.6 BP 148/72 H Pulse 135 H Intake Visit Reasons: overdue follow-up dx afib Intake Note: overdue folow up dx afib Electronic Coils Supervisor Required: No Allergies No Known Allergies Allergy (Verified 05/25/23 13:49) HPI overdue follow-up dx afib HPI Details Enrike is a 67-year-old male with past medical history of hypertension, hyperlipidemia, paroxysmalatrial fibrillation who was recently admitted to [facility] with chest discomfort and palpitations. He was found to have recurrent atrial fibrillation which was initially treated with rate control and then he underwent a cardioversion on 03/14/2023. He was discharged on increased dose of metoprolol. Today he reports that his 1st cardioversion lasted a week then he had recurrent AFib. He went back to [facility] and had a 2nd cardioversion. He tells me he was then started on amiodarone loading dose and is now on 200 mg daily. He can feel heart palpitations and shortness of breath with activity. No chest discomfort, dizziness, presyncope, syncope, falls. No PND, orthopnea or edema. He said overall he feels like crap which he believes is from the amiodarone load. he says he has been feeling a little better in the last few days now that he is on the 200 mg daily. Continues on metoprolol 100 mg b.i.d. He has been taking Eliquis with out any interruption. No bleeding issues reported. He says he was scheduled for cardioversion with Dr. Toth however he canceled it because he wanted to have it here at this hospital. [facility] Medical History Atrial fibrillation Knee pain Paroxysmal atrial fibrillation Surgical History H/O laparoscopy History of ankle surgery History of appendectomy History of cardioversion History of tonsillectomy Family History Father Hypertension Lymphoma Mother Hypertension Stroke Skin cancer Social History Housing: Condominium Alcohol intake: never Patient Tobacco Use Status: Never used Tobacco e-Cigarette/Vaping Use: Never Used Second Hand Smoke Exposure: No service: No Current occupational status: disabled Cognitive needs: No Hearing needs: No Vision needs: Yes Review of Systems Const All systems reviewed & are unremarkable except as noted in HPI and below ENT Reports dizziness Card Denies chest pain, Denies chest pain at rest, Denies chest pain with activity, Denies rapid heart rate, Denies pedal edema, Denies edema, Denies leg edema, Denies lightheadedness, Reports palpitations, Denies dyspnea, Reports dyspnea on exertion and Denies orthopnea Resp Denies cough, Denies dyspnea and Reports dyspnea on exertion GI Denies hematochezia and Denies change in stool character Musc Denies abnormal gait, Reports limited range of motion, Reports muscle cramps, Denies muscle weakness, Denies numbness, Denies radiating pain into limb, Denies stiffness and Denies tingling Neuro Denies abnormal gait, Reports dizziness, Denies numbness and Denies tingling Endo Reports palpitations Physical Exam Vital Signs: Last Vital Signs Pulse 135 H 05/25/23 13:39 BMI result Body Mass Index 28.6 Const General: cooperative, comfortable and no acute distress Orientation/consciousness: patient oriented x3 Neck Neck: Yes normal visual inspection Resp Effort & Inspection: normal respiratory effort Auscultation: clear to auscultation bilaterally, no crackles, no rales, no r honchi and no wheezes Cardio Jugular venous distension: no JVD Rate: tachycardic Rhythm: abnormal rhythm Heart sounds: S1 normal heart sound present, S2 normal heart sound present, no murmurs and no rubs Neuro General: patient oriented x3 Extrem General: Yes normal to inspection Psych Appearance: grossly normal Mental Status: mental status grossly normal Speech and movement: Normal speech and movement present Office Procedures EKG Details: Today, read by me, atrial flutter with variable AV block, right axis, ST abnormality inferior lateral leads suggesting ischemia, rate 135, QTC 483 mi llisecond however unclear accuracy as flutter waves make interpretation difficult [id number], Complete Assessment & Plan Assessment & Plan (1) Atrial fibrillation: Code(s): I48.91 - Unspecified atrial fibrillation Plan: history of paroxysmal atrial fibrillation previously controlled with metoprolol and on Eliquis for anticoagulation. [facility] admission in March with AFib RVR initially treated with rate control then underwent cardioversion back to normal sinus rhythm. He tells me he was continued on his usual metoprolol dose. He says that he maintained normal sinus rhythm for 1 week and then had recurrent palpitations. He presented again to [facility] where he again underwent cardioversion. He was started on amiodarone load and is now on maintenance dose. EKG today showing atrial flutter with variable AV block, rate 135, ischemia can not be excluded. no reports of chest pain. He continues to feel heart palpitations and has some shortness of breath. An echo was done at [facility] showing EF 55-60%, no regional wall motion abnormalities. At this time he is on amiodarone 200 mg daily and metoprolol tartrate 100 mg b.i.d.. He is on Eliquis 5 mg b.i.d. which he tells me has been on interrupted in the last [address] Alvarez. Will plan cardioversion in the near future. Cardioversion may hold now that he his loaded with anti arrhythmic. Reviewed with patient and he is agreeable to this plan. He does have issues with transportation and will try to work on getting a ride for a cardioversion this week. Instructed on light physical activity while his heart rates are elevated. Emergency care if needed for symptoms. Cardiology follow-up 2 weeks post cardioversion. will plan for AFib ablation going forward. (2) Atrial flutter: Code(s): I48.92 - Unspecified atrial flutter Plan: now with atrial flutter (3) Hypertension: Code(s): I10 - Essential (primary) hypertension Plan: adequately controlled at present. No med changes today Orders: Orders Cardioversion Today I48.92 - Unspecified atrial flutter Coding Level of Care Code Est Pt Level 4 (29647) Diagnoses Atrial fibrillation I48.91 Atrial flutter I48.92 Hypertension I10 CPT Codes EKG - CPT: 98840-[id number], Complete ([id number]) Time Spent (min) 30 Comment Chart review, documentation, interview, assessment
== END 2023-05-25 14:24 | disposition home or self-care (01) ==
PROVIDERS: Visit Provider Nurse Practitioner Family
DX: I48.91 Unspecified atrial fibrillation (principal); I48.92 Unspecified atrial flutter; I10 Essential (primary) hypertension
CPT/HCPCS: 93010; 99214

== ENCOUNTER → 2023-05-25 13:18 | Outpatient (BNVA) | payer MEDICARE, MEDICAID, SELFPAY | PROVIDERS: Visit Provider Nurse Practitioner Family | DX: I48.0 Paroxysmal atrial fibrillation (principal); I48.92 Unspecified atrial flutter; I10 Essential (primary) hypertension; Z79.01 Long term (current) use of anticoagulants; Z79.899 Other long term (current) drug therapy | CPT/HCPCS: 93005; 99212 ==

== ENCOUNTER 2023-06-07 08:05 | Day surgery (SDC) | payer MEDICARE, MEDICAID, SELFPAY ==
[2023-06-05 10:54] VITALS: BMI 28.6
--- NOTE | 2023-06-06 12:11 | HO.ANESPROP2 ---
Documented by User: Shirley Polo NP 06/06/23 12:13 HPI - Anesthesia Eval Consult details Narrative: 68yo M for Cardioversion Eliquis for afib PMFSH Active Problems Active Problems: All Active Problems (Updated 06/05/23 @ 10:55 by Caprice Bustillo RN) Prostatism (Acute) Hypertension (Acute) Obesity (Acute) Hypothyroidism (Acute) Physical exam (Acute) Hyperlipidemia (Acute) Atrial flutter (Acute) Paroxysmal atrial fibrillation (Acute) Knee pain (Acute) Atrial fibrillation (Acute) Past Medical History Medical History (Updated 06/07/23 @ 08:43 by Anisha Walker RN) Atrial fibrillation HTN (hypertension) Hypothyroid Knee pain Paroxysmal atrial fibrillation Stroke TIA (transient ischemic attack) Family History Family History Father Hypertension Lymphoma Mother Hypertension Stroke Skin cancer Surgical History Surgical History (Updated 06/05/23 @ 10:55 by Caprice Bustillo RN) H/O laparoscopy History of ankle surgery History of appendectomy History of cardioversion History of tonsillectomy Social History Social History Housing: Condominium Alcohol intake: never Patient Tobacco Use Status: Never used Tobacco e-Cigarette/Vaping Use: Never Used Second Hand Smoke Exposure: No Use of substances other than those prescribed or required for medical reasons: No Are you DNR?: No Advance Directives: No Advance Directives Information Provided: Yes service: No Current occupational status: disabled Cognitive needs: No Hearing needs: No Vision needs: Yes Meds Allergies Allergy/AdvReac Type Severity Reaction Status Date / Time aspirin AdvReac Stomach Verified 06/07/23 08:18 Upset Home Medications Medication Instructions Recorded Confirmed Last Taken Type multivitamin 1 tab PO DAILY 12/30/22 06/07/23 Unknown History thiamine HCl (vitamin B1) 100 mg 100 mg PO DAILY 12/30/22 06/07/23 Unknown History tablet aspirin 81 mg capsule,delayed 81 mg PO DAILY 06/07/23 06/07/23 Unknown History release Exam Exam Date and Time: June 06, 2023 121 Height,Weight and Vital Signs: Height 5 ft 5 in Weight 78.018 kg Pertinent Lab Results Pertinent Lab Results: Laboratory Tests 12/30/22 12/30/22 03:39 09:36 WBC 10.1 Hgb 13.8 L Hct 40.3 L Plt Count 230 Sodium 141 Potassium 4.3 Chloride 106 Carbon Dioxide 20 L BUN 11 Creatinine 0.92 Narrative Narrative: EKG 05/2023 trial flutter with variable AV block, right axis, ST abnormality inferior lateral leads suggesting ischemia,? rate 135, QTC 483 millisecond however unclear accuracy as flutter waves make interpretation difficult ECHO 12/2022 Conclusions: - Normal left ventricular cavity size.? The left ventricular ? ? systolic function is hyperdynamic.? The visually estimated ? ? ? ejection fraction is >70%. ? - Elevated filling pressures.? - Cannot rule out basal inferior wall motion abnormality.? - There is mild dilatation of the ascending aorta measuring 3.90 cm.? Assessment and Plan Assessment Anesthesia Assessment: Chart Reviewed Documented by User: Myrna Lu MD 06/07/23 08:46 PMFSH Past Medical History Medical History (Updated 06/07/23 @ 08:43 by Anisha Walker RN) Atrial fibrillation HTN (hypertension) Hypothyroid Knee pain Paroxysmal atrial fibrillation Stroke TIA (transient ischemic attack) Family History Family History Father Hypertension Lymphoma Mother Hypertension Stroke Skin cancer Family history of problems with anesthesia: No Surgical History Surgical History (Updated 06/05/23 @ 10:55 by Caprice Bustillo RN) H/O laparoscopy History of ankle surgery History of appendectomy History of cardioversion History of tonsillectomy History of Problems with Anesthesia: No Social History Social History Housing: Condominium Alcohol intake: never Patient Tobacco Use Status: Never used Tobacco e-Cigarette/Vaping Use: Never Used Second Hand Smoke Exposure: No Use of substances other than those prescribed or required for medical reasons: No Are you DNR?: No Advance Directives: No Advance Directives Information Provided: Yes service: No Current occupational status: disabled Cognitive needs: No Hearing needs: No Vision needs: Yes Meds Allergies Allergy/AdvReac Type Severity Reaction Status Date / Time aspirin AdvReac Stomach Verified 06/07/23 08:18 Upset Home Medications Medication Instructions Recorded Confirmed Last Taken Type multivitamin 1 tab PO DAILY 12/30/22 06/07/23 Unknown History thiamine HCl (vitamin B1) 100 mg 100 mg PO DAILY 12/30/22 06/07/23 Unknown History tablet aspirin 81 mg capsule,delayed 81 mg PO DAILY 06/07/23 06/07/23 Unknown History release Exam Airway Mallampati Class: II TM Dist: >3cm Neck ROM: Full Heart: irreg Lungs: cta Assessment and Plan Assessment Anesthesia Assessment: Anesthesia Plan Discussed Final Anesthetic Review Family History of Problems with Anesthesia: No History of Problems with Anesthesia: No NPO: Yes ASA Class: III Final Preanesthetic Review: No Changes in Pt Med Stat, Meds/Allgs Chart Reviewed and Consent Obtained/Reviewed Patient Risk: Intermediate Procedure Risk: Intermediate Anesthetic Plan Anesthetic Plan: MAC: Disposition: Standard PACU
[2023-06-07] VITALS (7 sets, daily range): BP systolic 93–151; BP diastolic 62–93; PULSE 60–121; RESP 16–17; TEMP 36.8–36.9; O2SAT 94–98
--- NOTE | 2023-06-07 08:30 | MHC.SHP ---
Pre-Procedural Eval Section A Date of Service: 06/07/23 The patient is an INPATIENT: No Changes since office visit: Yes Changes in Medication and Yes Patient answered all questions; No Cold of Flu in the past 2 weeks and No New Medical Problems Section B Chief Complaint: Unspecified atrial flutter Allergies: Allergies Allergy/AdvReac Type Severity Reaction Status Date / Time aspirin AdvReac Stomach Verified 06/07/23 08:18 Upset Plan I have reviewed the history and physical and performed a pertinent physical examination on my patient. No changes have occurred unless specified. Time Spent With Patient Time: Total time managing care of this patient today ____ minutes.
[2023-06-07] MEDS: Lactated Ringers 1,000 ML 50 ML IVCONT (08:44)
--- NOTE | 2023-06-07 10:01 | ECG_ITS ---
Test Reason : S/P CARDIOVWESION Blood Pressure : / mmHG Vent. Rate : 061 BPM Atrial Rate : 061 BPM P-R Int : 158 ms QRS Dur : 082 ms QT Int : 420 ms P-R-T Axes : 047 064 122 degrees QTc Int : 422 ms Poor data quality, interpretation may be adversely affected Normal sinus rhythm ST & T wave abnormality, consider lateral ischemia Abnormal ECG When compared with ECG of 30-DEC-2022 14:18, T wave inversion now evident in Lateral leads Referred By: Barry Alvarez Electronically Signed By:BARRY ALVAREZ MD
--- NOTE | 2023-06-07 10:11 | HO.CARDIVERS ---
Cardioversion Procedure Note Cardioversion Date of Procedure: Today Ordering Provider: Ana María Burnett Performing Provider: Myself Indication for Procedure: Persistent rapid atrial fibrillation Pre-Op Diagnosis: Same Post-Op Diagnosis: Sinus rhythm Performed with Transesophageal Echo: No History: See prior office note Consent: Verbal and Written consent was obtained from the patient before starting and after confirming oral anticoagulation use. The patient was made aware of the risk of synchronized cardioversion including benefits and alternatives Procedure: After consent obtained, cardioversion pads were attached in anteroposterior configuration and the patient was sedated by the anesthesia team. Once adequate sedation achieved, patient was delivered 200 joules of biphasic synchronized energy in anteroposterior configuration Complications: None Impression: Successful conversion to sinus rhythm Recommendations: 1. Continue amiodarone and oral anticoagulation 2. Twelve lead EKG 3. Follow up in the office in 2-4 weeks
== END 2023-06-07 11:24 | disposition home or self-care (01) ==
PROVIDERS: PCP Internal Medicine; Visit Provider Internal Medicine Cardiovascular Disease
PROC: 5A2204Z Restoration of Cardiac Rhythm, Single (ICD-10-PCS; principal; 2023-06-07 09:40)
DX: I48.19 Other persistent atrial fibrillation (principal); I48.92 Unspecified atrial flutter; Z79.01 Long term (current) use of anticoagulants; I10 Essential (primary) hypertension; E78.5 Hyperlipidemia, unspecified; Z79.899 Other long term (current) drug therapy
CPT/HCPCS: 92960; 93005

== ENCOUNTER → 2023-06-07 08:05 | Outpatient (BNV) | payer MEDICARE, MEDICAID, SELFPAY | PROVIDERS: PCP Internal Medicine; Visit Provider Internal Medicine Cardiovascular Disease | DX: I48.19 Other persistent atrial fibrillation (principal) | CPT/HCPCS: 92960 ==

== ENCOUNTER 2023-06-18 04:18 | Emergency (ER) | payer MEDICARE, MEDICAID, SELFPAY ==
--- NOTE | 2023-06-18 | ECG_ITS ---
Test Reason : CHEST PAIN Blood Pressure : / mmHG Vent. Rate : 061 BPM Atrial Rate : 061 BPM P-R Int : 178 ms QRS Dur : 086 ms QT Int : 464 ms P-R-T Axes : 056 046 064 degrees QTc Int : 467 ms Sinus rhythm with marked sinus arrhythmia Nonspecific ST and T wave abnormality Prolonged QT Abnormal ECG When compared with ECG of 07-JUN-2023 10:08, Nonspecific T wave abnormality now evident in Anterior leads Referred By: Generic ED Physician Electronically Signed By:SONIA CROW
[2023-06-18 04:25] VITALS: BP 170/100; PULSE 74; O2SAT 97
[2023-06-18 04:58] VITALS: BP 185/102; PULSE 63; RESP 13; TEMP 37.2; O2SAT 96; BMI 28.3
[2023-06-18 05:05] LABS: Basophils Absolute Auto 0.1 X10*3/uL (0.0-0.2); Basophils Percent Auto 0.8 % (0-2); Eosinophils Absolute Auto 0.2 X10*3/uL (0.0-0.4); Eosinophils Percent Auto 2.5 % (0-4); Hematocrit 40.3 % (42.0-52.0); Hemoglobin 13.6 g/dl (14.0-18.0); Imm Gran Abs Auto 0.02 X10*3/uL (0.00-0.03); Imm Gran Pct Auto 0.3 % (0.0-0.4); Lymphocytes Absolute Auto 1.1 X10*3/uL (1.2-4.9); Lymphocytes Percent Auto 16.8 % (20-40); MANUAL DIFF FLAG NO; Mean Corpuscular HGB Conc 33.7 g/dl (31.0-36.0); Mean Corpuscular Hemoglobin 32.7 pg (27.0-33.0); Mean Corpuscular Volume 96.9 fL (80.0-98.0); Mean Platelet Volume 9.8 fL (9.4-12.4); Monocytes Absolute Auto 0.6 X10*3/uL (0.1-1.2); Monocytes Percent Auto 8.6 % (2-11); Neutrophils Absolute Auto 4.6 x10*3/uL (2.0-8.3); Platelet Count 192 X10*3/uL (160-400); Red Blood Count 4.16 X10*6/uL (4.60-5.80); Red Cell Distribution Width 13.2 % (11.0-16.0); White Blood Count 6.4 X10*3/uL (4.8-10.8)
[2023-06-18 05:11] LABS: INTERNATIONAL NORM RATIO 1.4 (0.9-1.1); Prothrombin Time 16.7 SEC (11.1-13.3)
[2023-06-18 05:20] LABS: Alanine Aminotransferase 17 U/L (0-40); Albumin Level 4.2 g/dL (3.5-5.0); Alkaline Phosphatase 68 U/L (39-117); Anion Gap 18 (12-20); Aspartate Amino Transferase 19 U/L (5-37); Bilirubin Total 0.6 mg/dL (0.0-1.0); Blood Urea Nitrogen 13 mg/dL (9-16); Calcium 9.5 mg/dL (8.4-10.2); Carbon Dioxide 20 mmol/L (22-29); Chloride 104 mmol/L (96-108); Estimated Glomerular Filt Rate > 60; Glucose Random 116 mg/dL (60-115); Potassium 4.4 mmol/L (3.3-5.1); Sodium 138 mmol/L (135-145); Total Protein 7.6 g/dL (6.5-8.0)
[2023-06-18 05:26] LABS: Troponin-I High Sensitivity < 2.7 ng/L (<3.5-35.0)
--- NOTE | 2023-06-18 05:29 | ED_ITS ---
HPI - Chest Pain General Chief Complaint: Chest Pain Stated Complaint: Anxiety? Time Seen by Provider: 06/18/23 05:29 Source: patient Mode of arrival: ambulatory Limitations: no limitations History of Present Illness HPI narrative: Patient with history of paroxysmal atrial fibrillation on Eliquis and metoprolol had cardioversion last week feeling good woke up from sleep felt that heart was racing fast and he came here also feeling same but heart rate was in 60s anxious and panic feels tired whole-body weakness occasional cough no significant shortness of breath Related Data Home Medications Medication Instructions Recorded Confirmed multivitamin 1 tab PO DAILY 12/30/22 06/07/23 thiamine HCl (vitamin B1) 100 mg 100 mg PO DAILY 12/30/22 06/07/23 tablet aspirin 81 mg capsule,delayed 81 mg PO DAILY 06/07/23 06/07/23 release Previous Rx's Medication Instructions Recorded levetiracetam 500 mg tablet 500 mg PO BID #180 tabs 04/12/22 amitriptyline 50 mg tablet 50 mg PO DAILY #90 tabs 01/02/23 levothyroxine 50 mcg tablet 50 mcg PO DAILY #90 tabs 01/27/23 apixaban 5 mg tablet (Eliquis) 5 mg PO BID #180 tabs 02/14/23 metoprolol tartrate 100 mg tablet 100 mg PO BID #180 tabs 02/14/23 temazepam 30 mg capsule 30 mg PO BEDTIME PRN sleep #30 caps 04/06/23 Allergies Allergy/AdvReac Type Severity Reaction Status Date / Time aspirin AdvReac Stomach Verified 06/07/23 08:18 Upset Review of Systems Review of Systems: Yes all other systems are reviewed and are negative [facility] Past Medical History Medical History Atrial fibrillation HTN (hypertension) Hypothyroid Knee pain Paroxysmal atrial fibrillation Seizure Stroke TIA (transient ischemic attack) Surgical History H/O laparoscopy History of ankle surgery History of appendectomy History of cardioversion History of tonsillectomy Family History Family History Father Hypertension Lymphoma Mother Hypertension Stroke Skin cancer Social History [facility] Alcohol intake: never Patient Tobacco Use Status: Never used Tobacco Smoked in Last 30 Days: No e-Cigarette/Vaping Use: Never Used Second Hand Smoke Exposure: No Use of substances other than those prescribed or required for medical reasons: No Advance Directives: No Advance Directives Information Provided: Yes service: No Current occupational status: disabled Cognitive needs: No Hearing needs: No Vision needs: Yes Physical Exam Vital Signs: Vital Signs: Last Vital Signs Temp 98.9 F 06/18/23 04:58 Pulse 63 06/18/23 04:58 Resp 13 06/18/23 04:58 BP 185/102 H 06/18/23 04:58 Pulse Ox 96 06/18/23 04:58 O2 Del Method Room Air 06/18/23 04:58 BMI result Body Mass Index 28.3 Appearance: Alert. Oriented X3. No acute distress. Anxious Eyes: PERRLA, No Nystagmus ENT: Pharynx normal. Oral Mucosa moist Neck: Normal inspection. Neck supple. CVS: Normal heart rate and rhythm. Pulses normal. Respiratory: No respiratory distress. Equal air entry bilateral, no wheezing/rales/rhonchi Abdomen: Soft and nontender. Bowel sounds are present, no mass palpable, no CVA tenderness Skin: Skin warm and dry. Normal skin color. Normal skin turgor. Extremities: No lower extremity edema. No calf tenderness Neuro: Oriented X 3. No motor deficit. No sensory deficit.No cerebellar signs , cranial nerves II-XII intact Medications Administered Discontinued Medications Generic Name Dose Route Start Last Admin Trade Name Constantineq PRN Reason Stop Dose Admin Meclizine HCl 25 mg 06/18/23 06:02 06/18/23 06:08 Meclizine Hcl 25 Mg Tablet PO 06/18/23 06:03 25 mg ONCE ONE Administration Medical Decision Making Medical Decision Making MDM Narrative: Patient with episode of palpitation questionable AFib by the time patient arrived in sinus rhythm also patient was anxious labs are stable cardiac enzymes negative will discharge patient home advised to continue his medication and follow with fleet assistant no cardiac arrhythmias noted during stay in the ER discharge patient home advised to continue metoprolol Lab Data [facility] Lab Attestation statement: I reviewed the patient's lab results. 06/18/23 04:38 06/18/23 04:38 Labs: Lab Results 06/18/23 06/18/23 06/18/23 Range/Units 04:38 04:38 04:38 WBC 6.4 (4.8-10.8) X10*3/uL RBC 4.16 L (4.60-5.80) X10*6/uL Hgb 13.6 L (14.0-18.0) g/dl Hct 40.3 L (42.0-52.0) % MCV 96.9 (80.0-98.0) fL MCH 32.7 (27.0-33.0) pg MCHC 33.7 (31.0-36.0) g/dl RDW 13.2 (11.0-16.0) % Plt Count 192 (160-400) X10*3/uL MPV 9.8 (9.4-12.4) fL Immature Gran % (Auto) 0.3 (0.0-0.4) % Neut % (Auto) 71.0 (45-73) % Lymph % (Auto) 16.8 L (20-40) % Linn % (Auto) 8.6 (2-11) % Eos % (Auto) 2.5 (0-4) % Baso % (Auto) 0.8 (0-2) % Lymph # (Auto) 1.1 L (1.2-4.9) X10*3/uL Linn # (Auto) 0.6 (0.1-1.2) X10*3/uL Eos # (Auto) 0.2 (0.0-0.4) X10*3/uL Baso # (Auto) 0.1 (0.0-0.2) X10*3/uL Abs Immat Gran (auto) 0.02 (0.00-0.03) X10*3/uL Absolute Neuts (auto) 4.6 (2.0-8.3) x10*3/uL Absolute Nucleated RBC 0.000 (0.0-0.012) X10*3/uL Nucleated RBC % (auto) 0.0 (0.0-0.2) /100WBC PT (11.1-13.3) SEC INR (0.9-1.1) Sodium 138 (135-145) mmol/L Potassium 4.4 (3.3-5.1) mmol/L Chloride 104 (96-108) mmol/L Carbon Dioxide 20 L (22-29) mmol/L Anion Gap 18 (12-20) BUN 13 (9-16) mg/dL Creatinine 1.07 (0.5-1.4) mg/dL Estim Creat Clear Calc 65.0 Estimated GFR > 60 Random Glucose 116 H (60-115) mg/dL Calcium 9.5 (8.4-10.2) mg/dL Total Bilirubin 0.6 (0.0-1.0) mg/dL AST 19 (5-37) U/L ALT 17 (0-40) U/L Alkaline Phosphatase 68 (39-117) U/L Troponin I High Sens < 2.7 D (<3.5-35.0) ng/L Total Protein 7.6 (6.5-8.0) g/dL Albumin 4.2 (3.5-5.0) g/dL 06/18/23 Range/Units 04:38 WBC (4.8-10.8) X10*3/uL RBC (4.60-5.80) X10*6/uL Hgb (14.0-18.0) g/dl Hct (42.0-52.0) % MCV (80.0-98.0) fL MCH (27.0-33.0) pg MCHC (31.0-36.0) g/dl RDW (11.0-16.0) % Plt Count (160-400) X10*3/uL MPV (9.4-12.4) fL Immature Gran % (Auto) (0.0-0.4) % Neut % (Auto) (45-73) % Lymph % (Auto) (20-40) % Linn % (Auto) (2-11) % Eos % (Auto) (0-4) % Baso % (Auto) (0-2) % Lymph # (Auto) (1.2-4.9) X10*3/uL Linn # (Auto) (0.1-1.2) X10*3/uL Eos # (Auto) (0.0-0.4) X10*3/uL Baso # (Auto) (0.0-0.2) X10*3/uL Abs Immat Gran (auto) (0.00-0.03) X10*3/uL Absolute Neuts (auto) (2.0-8.3) x10*3/uL Absolute Nucleated RBC (0.0-0.012) X10*3/uL Nucleated RBC % (auto) (0.0-0.2) /100WBC PT 16.7 H (11.1-13.3) SEC INR 1.4 H (0.9-1.1) Sodium (135-145) mmol/L Potassium (3.3-5.1) mmol/L Chloride (96-108) mmol/L Carbon Dioxide (22-29) mmol/L Anion Gap (12-20) BUN (9-16) mg/dL Creatinine (0.5-1.4) mg/dL Estim Creat Clear Calc Estimated GFR Random Glucose (60-115) mg/dL Calcium (8.4-10.2) mg/dL Total Bilirubin (0.0-1.0) mg/dL AST (5-37) U/L ALT (0-40) U/L Alkaline Phosphatase (39-117) U/L Troponin I High Sens (<3.5-35.0) ng/L Total Protein (6.5-8.0) g/dL Albumin (3.5-5.0) g/dL Independent Interpretation I performed an independent interpretation of an: EKG Interpretation: Normal sinus rhythm heart rate 61 beats per minute PACs nonspecific ST-T changes no acute ischemia Discharge Plan Discharge Clinical Impression: Paroxysmal atrial fibrillation Patient Disposition: Home, Self-Care Instructions: A-fib (Atrial Fibrillation) (ED) Additional Instructions: Continue medications as prescribed by fleet assistant and Eliquis Report to ER/fleet assistant if palpitation episode continue for too long with passing out episode Prescriptions: No Action levetiracetam 500 mg tablet 500 mg PO BID Qty: 180 8RF amitriptyline 50 mg tablet 50 mg PO DAILY Qty: 90 8RF levothyroxine 50 mcg tablet 50 mcg PO DAILY Qty: 90 8RF metoprolol tartrate 100 mg tablet 100 mg PO BID Qty: 180 8RF Eliquis 5 mg tablet 5 mg PO BID Qty: 180 8RF temazepam 30 mg capsule 30 mg PO BEDTIME PRN (Reason: sleep) Qty: 30 5RF multivitamin Tablet 1 tab PO DAILY thiamine HCl (vitamin B1) 100 mg Tablet 100 mg PO DAILY aspirin 81 mg Capsule,Delayed Release(Dr/Ec) 81 mg PO DAILY
[2023-06-18] MEDS: Meclizine HCl 25 MG TABLET PO (06:08)
[2023-06-18 07:00] LABS: COVID-19 Test Negative (Negative); IDNOW Serial# BCCEAD1C
== END 2023-06-18 08:41 | disposition home or self-care (01) ==
PROVIDERS: Emergency Provider Internal Medicine; PCP Internal Medicine
DX: I48.0 Paroxysmal atrial fibrillation (principal); R07.89 Other chest pain; F41.1 Generalized anxiety disorder; F43.0 Acute stress reaction; Z20.822 Contact with and (suspected) exposure to COVID-19; Z20.828 Contact with and (suspected) exposure to other viral communicable diseases; Z79.01 Long term (current) use of anticoagulants; Z79.899 Other long term (current) drug therapy
CPT/HCPCS: 36415; 80053; 84484; 85025; 85610; 87635; 93005; 99284

== ENCOUNTER → 2023-06-18 04:37 | Outpatient (BNV) | payer MEDICARE, MEDICAID, SELFPAY | PROVIDERS: Emergency Provider Internal Medicine; PCP Internal Medicine; Visit Provider Internal Medicine | DX: I49.9 Cardiac arrhythmia, unspecified (principal) | CPT/HCPCS: 93010 ==

== ENCOUNTER 2023-07-11 14:15 | Outpatient (AMB) | payer MEDICARE, MEDICAID, SELFPAY ==
--- NOTE | 2023-07-11 14:19 | MHC.OFFVIS ---
Intake Vital Signs 07/11/23 14:20 Height 5 ft 5 in Weight 185 lb 10.067 oz BMI 30.9 BP 140/84 H Blood Pressure Location Lt brachial Position Sitting Pulse 64 Pulse Source Monitor Intake Visit Reasons: Follow up post cardioversion Intake Note: Follow up with EKG after cardioversion Blood Bank Credit Clerk Required: No Accompanied by: Self / Same As Patient Allergies aspirin Adverse Reaction (Verified 07/11/23 14:23) Stomach Upset Medication List - Last Reconciled 07/11/23 by Ana María Burnett, [employer] amitriptyline 50 mg PO DAILY apixaban (Eliquis) 5 mg PO BID levetiracetam 500 mg PO BID levothyroxine 50 mcg PO DAILY metoprolol tartrate 100 mg PO BID multivitamin 1 tab PO DAILY temazepam 30 mg PO BEDTIME PRN thiamine HCl (vitamin B1) 100 mg PO DAILY PFSH Medical History Atrial fibrillation HTN (hypertension) Hypothyroid Knee pain Paroxysmal atrial fibrillation Seizure Stroke TIA (transient ischemic attack) Surgical History H/O laparoscopy History of ankle surgery History of appendectomy History of cardioversion History of tonsillectomy Family History Father Hypertension Lymphoma Mother Hypertension Stroke Skin cancer Social History Housing: Condominium Alcohol intake: never Patient Tobacco Use Status: Never used Tobacco e-Cigarette/Vaping Use: Never Used Second Hand Smoke Exposure: No service: No Current occupational status: disabled Cognitive needs: No Hearing needs: No Vision needs: Yes Review of Systems Const Details: Recent word searching, tremors, blurred vision, admits to being mostly sedentary All systems reviewed & are unremarkable except as noted in HPI and below Denies weakness ENT Denies dizziness Card Denies chest pain, Denies chest pain with activity, Denies syncope, Denies rapid heart rate, Denies pedal edema, Denies edema, Denies leg edema, Denies lightheadedness, Denies palpitations, Denies dyspnea, Denies dyspnea on exertion and Denies orthopnea Resp Denies cough, Denies dyspnea and Denies dyspnea on exertion GI Denies hematochezia and Denies change in stool character Musc Details: No weakness of extremities however does report tremors Denies abnormal gait, Denies muscle cramps, Denies muscle weakness, Denies numbness, Denies radiating pain into limb and Denies tingling Neuro Denies abnormal gait, Denies dizziness, Denies syncope, Denies numbness, Denies tingling and Denies weakness Endo Denies palpitations Physical Exam Vital Signs: Last Vital Signs Pulse 64 07/11/23 14:20 BP 140/84 H 07/11/23 14:20 BMI result Body Mass Index 30.9 Const General: cooperative and no acute distress Orientation/consciousness: patient oriented x3 HEENT Other: Right-sided facial droop noted. Tongue midline. No difficulty swallowing reported. Neck Neck: Yes normal visual inspection Resp Effort & Inspection: normal respiratory effort Auscultation: clear to auscultation bilaterally, no rales, no rhonchi and no wheezes Cardio Jugular venous distension: no JVD Rate: regular rate Rhythm: regular rhythm Heart sounds: S1 normal heart sound present, S2 normal heart sound present, no murmurs and no rubs Neuro General: patient oriented x3 Extrem Other: Appears to move all extremities normally General: Yes normal to inspection Psych Mental Status: mental status grossly normal Office Procedures EKG Details: Today, read by me, sinus rhythm with marked sinus arrhythmia, QTC 482 milliseconds, rate 64 [id number], Complete Assessment & Plan Assessment & Plan (1) Atrial fibrillation: Code(s): I48.91 - Unspecified atrial fibrillation Plan: history of paroxysmal atrial fibrillation previously controlled with metoprolol and on Eliquis for anticoagulation. [facility] admission in March with AFib RVR initially treated with rate control then underwent cardioversion back to normal sinus rhythm. He tells me he was continued on his usual metoprolol dose. He says that he maintained normal sinus rhythm for 1 week and then had recurrent palpitations. He presented again to [facility] where he again underwent cardioversion. He was started on amiodarone load and is now on maintenance dose. EKG today showing atrial flutter with variable AV block, rate 135, ischemia can not be excluded. no reports of chest pain. He continues to feel heart palpitations and has some shortness of breath. An echo was done at [facility] showing EF 55-60%, no regional wall motion abnormalities. At this time he is on amiodarone 200 mg daily and metoprolol tartrate 100 mg b.i.d.. He is on Eliquis 5 mg b.i.d. which he tells me has been on interrupted in the last [address] Alvarez. Will plan cardioversion in the near future. Cardioversion may hold now that he his loaded with anti arrhythmic. Reviewed with patient and he is agreeable to this plan. He does have issues with transportation and will try to work on getting a ride for a cardioversion this week. Instructed on light physical activity while his heart rates are elevated. Emergency care if needed for symptoms. Cardiology follow-up 2 weeks post cardioversion. will plan for AFib ablation going forward. (2) Atrial flutter: Code(s): I48.92 - Unspecified atrial flutter Plan: now with atrial flutter (3) Hypertension: Code(s): I10 - Essential (primary) hypertension Plan: adequately controlled at present. No med changes today Coding Level of Care Code Est Pt Level 5 (30614) Diagnoses Atrial fibrillation I48.91 Atrial flutter I48.92 Hypertension I10 CPT Codes EKG - CPT: [id number], Complete ([id number]) Time Spent (min) 35 Comment Chart review, documentation, interview, assessment, ED report, MD discussion
[2023-07-11 14:20] VITALS: BP 140/84; PULSE 64; BMI 30.9
== END 2023-07-11 15:23 | disposition home or self-care (01) ==
PROVIDERS: PCP Internal Medicine; Referring Provider Internal Medicine; Visit Provider Nurse Practitioner Family
DX: I48.91 Unspecified atrial fibrillation (principal); I48.92 Unspecified atrial flutter; I10 Essential (primary) hypertension
CPT/HCPCS: 93010; 99215

== ENCOUNTER 2023-07-11 15:36 | Emergency (ER) | payer MEDICARE, MEDICAID, SELFPAY ==
--- NOTE | ~2023-07-11 | CT_ITS ---
EXAMINATION: CT ANGIOGRAM HEAD CT ANGIOGRAM NECK CLINICAL INFORMATION: Reason for Exam left sided facial droop, + change in speech, hx of COMPARISON: Same day noncontrast head CT, CTA head and neck 01/23/2018 TECHNIQUE: Test bolus sequences followed by intravenous administration 70 mL of Omnipaque 350. Helical imaging was performed in the axial plane from the aortic arch to the skull vertex. Delayed postcontrast imaging of the head was also performed. The data was processed at the instrument technologist's workstation for generation of MIP sequences. Angled MIPs and volume rendered reformatted images were also generated at an offline 3D workstation. Stenoses are assessed in accordance with NASCET criteria unless otherwise indicated. DLP: 1547 mGy-cm This CT examination was performed using dose optimization techniques as appropriate, variously including the following: *Automated exposure control. *Adjustment of mA and/or kV according to patient size (this includes techniques or standardized protocols for targeted exams where dose is matched to indication/reason for exam; i.e. extremities or head). *Use of iterative reconstruction technique. FINDINGS: CT Head: There is no evidence of acute intracranial hemorrhage or edematous territorial infarction. A few foci of hypoattenuation in the periventricular and deep white matter are consistent with mild microangiopathy. Chronic left superior cerebellar infarct. Prajapati-white matter differentiation is preserved. Proportional prominence of the ventricles and sulcal spaces. No evidence for obstructive hydrocephalus. No abnormal mass effect or midline shift. No extra-axial fluid collections. Stable chronic hyperdensity involving the anterior right subinsular region which may represent a cavernoma. No pathologic intra-axial enhancement or regional oligemia. No acute soft tissue or osseous abnormalities. The mastoid air cells and paranasal sinuses are clear. CT Neck: The thyroid gland and remaining cervical soft tissues are within normal limits. Multilevel cervical spondylosis. Chronic-appearing height loss involving multiple upper thoracic vertebral bodies. CT Upper Chest: The visualized lung apices and upper mediastinum are within normal limits. Coronary artery calcifications Neck CTA: Aortic Arch: Normal contour and caliber. Classic 3 vessel branching pattern of the aortic arch. Great Vessel Origins: No significant stenosis of the branch origins. Right Common Carotid Artery: No focal stenosis or occlusion. Cervical Right Internal Carotid Artery: Calcific atherosclerotic disease of the carotid bulb and proximal internal carotid artery causing less than 50% stenosis. Left Common Carotid Artery: No focal stenosis or occlusion. Cervical Left Internal Carotid Artery: Calcific atherosclerotic disease of the carotid bulb and proximal internal carotid artery causing less than 50% stenosis. Cervical Right Vertebral Artery: Dominant. No focal stenosis or occlusion. Cervical Left Vertebral Artery: No focal stenosis or occlusion. Brain CTA: Intracranial Internal Carotid Arteries: Calcific atherosclerotic disease of the intracranial internal carotid arteries without occlusion or flow-limiting stenosis. Right Anterior Cerebral Artery: Normal A1 segment. Normal opacification of the distal JEOV[place] segments. Left Anterior Cerebral Artery: Normal A1 segment. Normal opacification of the distal [place] segments. Anterior Communicating Artery: Normal. Right Middle Cerebral Artery: Normal M1 segment of the MCA without focal stenosis or occlusion. Normal arborization of the distal segments. Left Middle Cerebral Artery: Normal M1 segment of the MCA without focal stenosis or occlusion. Normal arborization of the distal segments. Right Vertebral Artery: Normal V4 segment. Left Vertebral Artery: Normal V4 segment. Basilar Artery: Normal without focal stenosis or occlusion. Normal appearance of the proximal superior cerebellar arteries. Right Posterior Cerebral Artery: Normal P1 segment. Normal opacification of the distal [place]ASHIER segments. Left Posterior Cerebral Artery: Normal P1 segment. Normal opacification of the distal [place]ASHIER segments. Normal opacification of the superior sagittal, straight, transverse, and sigmoid sinuses. CT/CT angio head neck stroke IMPRESSION: No arterial high grade stenosis or large vessel occlusion in the head or neck. Above impression was communicated to Dr Unger on 07/11/2023 5:36 PM
--- NOTE | ~2023-07-11 | CT_ITS ---
EXAMINATION: CT HEAD WITHOUT CONTRAST CLINICAL INFORMATION: Difficulty word finding, vision changes. COMPARISON: 04/26/[address] scan. TECHNIQUE: Contiguous axial imaging was performed from the skull base to vertex without intravenous administration of contrast. Coronal and sagittal reformatted images were obtained. This CT examination was performed using dose optimization techniques as appropriate, variously including the following: *Automated exposure control *Adjustment of mA and/or kV according to patient size (this includes techniques or standardized protocols for targeted exams where dose is matched to indication/reason for exam; i.e. extremities or head) *Use of iterative reconstruction technique DLP: 649 mGy-cm FINDINGS: There is mild widening of the cortical sulci and associated ventriculomegaly. The lateral ventricles are symmetrical. The third and fourth ventricles are in their normal midline position. The basilar and prepontine cisterns are unremarkable. Mild periventricular microvascular changes are seen. Calcifications near the right insular cortex have not significantly changed. There is no acute intra or extracerebral abnormality. There is no mass effect or midline shift. Sections through the bony calvarium are unremarkable. The orbits are intact. The paranasal sinuses are clear. The mastoid air cells are clear. CT/CT head/brain wo IV con IMPRESSION: No acute intracranial pathology.
[2023-07-11 15:41] VITALS: BP 130/79; PULSE 53; RESP 20; TEMP 36.9; O2SAT 94; BMI 29.1
--- NOTE | 2023-07-11 15:42 | ED.GENADULT ---
HPI - General Adult General Chief complaint: General Medical Stated complaint: sent down from Cardio / stroke like symptoms Time Seen by Provider: 07/11/23 16:09 Related Data Home Medications Medication Instructions Recorded Confirmed multivitamin 1 tab PO DAILY 12/30/22 07/11/23 thiamine HCl (vitamin B1) 100 mg 100 mg PO DAILY 12/30/22 07/11/23 tablet amitriptyline 50 mg tablet 50 mg PO BEDTIME 07/11/23 07/11/23 levetiracetam 500 mg tablet 500 mg PO DAILY 07/11/23 07/11/23 Previous Rx's Medication Instructions Recorded levothyroxine 50 mcg tablet 50 mcg PO DAILY #90 tabs 01/27/23 apixaban 5 mg tablet (Eliquis) 5 mg PO BID #180 tabs 02/14/23 temazepam 30 mg capsule 30 mg PO BEDTIME PRN sleep #30 caps 04/06/23 metoprolol tartrate 100 mg tablet 100 mg PO BID #180 tabs 06/27/23 amiodarone 200 mg tablet 200 mg PO DAILY #90 tabs 07/11/23 Allergies Allergy/AdvReac Type Severity Reaction Status Date / Time aspirin AdvReac Stomach Verified 07/11/23 14:23 Upset PMFSH Past Medical History Medical History Atrial fibrillation HTN (hypertension) Hypothyroid Knee pain Paroxysmal atrial fibrillation Seizure Stroke TIA (transient ischemic attack) Surgical History H/O laparoscopy History of ankle surgery History of appendectomy History of cardioversion History of tonsillectomy Family History Family History Father Hypertension Lymphoma Mother Hypertension Stroke Skin cancer Social History Social History Housing: Condominium Alcohol intake: never Patient Tobacco Use Status: Never used Tobacco e-Cigarette/Vaping Use: Never Used Second Hand Smoke Exposure: No service: No Current occupational status: disabled Cognitive needs: No Hearing needs: No Vision needs: Yes Physical Exam ED Vital Signs: Vital Signs - 24 hr 07/11/23 15:41 Temperature 98.5 F Pulse Rate 53 Respiratory Rate 20 Blood Pressure 130/79 Pulse Oximetry 94 Oxygen Delivery Method Room Air BMI result Body Mass Index 29.1 Course Course Course Narrative: This is a rapid medical exam: Additional HPI, ROS, PE not included below will be deferred to primary provider. Patient is a 68-year-old male presenting to the emergency department from cardiology for concern of a stroke. They report patient had some difficulty with word finding, but patient states that has been going on for weeks. Also reports blurred vision with distance for several weeks. Denies any headache or other pain. Denies any focal weakness. Plan: Patient brought back to room in main ED; CT head ordered Medications Administered Discontinued Medications Generic Name Dose Route Start Last Admin Trade Name Freq PRN Reason Stop Dose Admin Iohexol 100 ml 07/11/23 17:23 07/11/23 17:24 Iohexol 350 Mg/Ml 100 Ml Infus..Btl IV 07/11/23 17:24 70 ml ONCE ONE Administration Medical Decision Making Lab Data 07/11/23 16:41 07/11/23 16:41 Labs: Lab Results 07/11/23 07/11/23 07/11/23 Range/Units 16:41 16:41 16:41 WBC 8.9 (4.8-10.8) X10*3/uL RBC 3.91 L (4.60-5.80) X10*6/uL Hgb 13.0 L (14.0-18.0) g/dl Hct 38.4 L (42.0-52.0) % MCV 98.2 H (80.0-98.0) fL MCH 33.2 H (27.0-33.0) pg MCHC 33.9 (31.0-36.0) g/dl RDW 13.2 (11.0-16.0) % Plt Count 195 (160-400) X10*3/uL MPV 10.2 (9.4-12.4) fL Immature Gran % (Auto) 0.4 (0.0-0.4) % Neut % (Auto) 63.5 (45-73) % Lymph % (Auto) 22.6 (20-40) % [place] % (Auto) 9.7 (2-11) % Eos % (Auto) 3.1 (0-4) % Baso % (Auto) 0.7 (0-2) % Lymph # (Auto) 2.0 (1.2-4.9) X10*3/uL [place] # (Auto) 0.9 (0.1-1.2) X10*3/uL Eos # (Auto) 0.3 (0.0-0.4) X10*3/uL Baso # (Auto) 0.1 (0.0-0.2) X10*3/uL Abs Immat Gran (auto) 0.04 H (0.00-0.03) X10*3/uL Absolute Neuts (auto) 5.7 (2.0-8.3) x10*3/uL Absolute Nucleated RBC 0.000 (0.0-0.012) X10*3/uL Nucleated RBC % (auto) 0.0 (0.0-0.2) /100WBC PT (11.1-13.3) SEC INR (0.9-1.1) Sodium 141 (135-145) mmol/L Potassium 3.9 (3.3-5.1) mmol/L Chloride 103 (96-108) mmol/L Carbon Dioxide 29 (22-29) mmol/L Anion Gap 13 (12-20) BUN 14 (9-16) mg/dL Creatinine 1.11 (0.5-1.4) mg/dL Estim Creat Clear Calc 63.5 Estimated GFR > 60 Random Glucose 100 (60-115) mg/dL Calcium 10.1 D (8.4-10.2) mg/dL Total Bilirubin 0.5 (0.0-1.0) mg/dL AST 31 (5-37) U/L ALT 33 (0-40) U/L Alkaline Phosphatase 68 (39-117) U/L Troponin I High Sens < 2.7 (<3.5-35.0) ng/L Total Protein 7.7 (6.5-8.0) g/dL Albumin 4.4 (3.5-5.0) g/dL Urine Color Urine Appearance Urine pH (5.0-9.0) Ur Specific [place] (1.005-1.025) Urine Protein (Neg-Trace) mg/dL Urine Glucose (UA) (Negative) mg/dL Urine Ketones (Negative) mg/dL Urine Blood (Negative) Urine Nitrite (Negative) Ur Leukocyte Esterase (Negative) 07/11/23 07/11/23 Range/Units 16:41 19:18 WBC (4.8-10.8) X10*3/uL RBC (4.60-5.80) X10*6/uL Hgb (14.0-18.0) g/dl Hct (42.0-52.0) % MCV (80.0-98.0) fL MCH (27.0-33.0) pg MCHC (31.0-36.0) g/dl RDW (11.0-16.0) % Plt Count (160-400) X10*3/uL MPV (9.4-12.4) fL Immature Gran % (Auto) (0.0-0.4) % Neut % (Auto) (45-73) % Lymph % (Auto) (20-40) % [place] % (Auto) (2-11) % Eos % (Auto) (0-4) % Baso % (Auto) (0-2) % Lymph # (Auto) (1.2-4.9) X10*3/uL [place] # (Auto) (0.1-1.2) X10*3/uL Eos # (Auto) (0.0-0.4) X10*3/uL Baso # (Auto) (0.0-0.2) X10*3/uL Abs Immat Gran (auto) (0.00-0.03) X10*3/uL Absolute Neuts (auto) (2.0-8.3) x10*3/uL Absolute Nucleated RBC (0.0-0.012) X10*3/uL Nucleated RBC % (auto) (0.0-0.2) /100WBC PT 12.9 D (11.1-13.3) SEC INR 1.1 (0.9-1.1) Sodium (135-145) mmol/L Potassium (3.3-5.1) mmol/L Chloride (96-108) mmol/L Carbon Dioxide (22-29) mmol/L Anion Gap (12-20) BUN (9-16) mg/dL Creatinine (0.5-1.4) mg/dL Estim Creat Clear Calc Estimated GFR Random Glucose (60-115) mg/dL Calcium (8.4-10.2) mg/dL Total Bilirubin (0.0-1.0) mg/dL AST (5-37) U/L ALT (0-40) U/L Alkaline Phosphatase (39-117) U/L Troponin I High Sens (<3.5-35.0) ng/L Total Protein (6.5-8.0) g/dL Albumin (3.5-5.0) g/dL Urine Color Yellow Urine Appearance Clear Urine pH 8.0 (5.0-9.0) Ur Specific [place] >= 1.030 H (1.005-1.025) Urine Protein Negative (Neg-Trace) mg/dL Urine Glucose (UA) Negative (Negative) mg/dL Urine Ketones Negative (Negative) mg/dL Urine Blood Negative (Negative) Urine Nitrite Negative (Negative) Ur Leukocyte Esterase Negative (Negative) Radiology Impression Discussion of test interpretation with radiology: I discussed test interpretation with the radiologist (CTA negative for LVO of head) Discharge Plan Discharge Clinical Impression: Paroxysmal atrial fibrillation, Acute CVA (cerebrovascular accident) Patient Disposition: Home, Self-Care Instructions: Ischemic Stroke (DC) Prescriptions: No Action levothyroxine 50 mcg tablet 50 mcg PO DAILY Qty: 90 8RF Eliquis 5 mg tablet 5 mg PO BID Qty: 180 8RF temazepam 30 mg capsule 30 mg PO BEDTIME PRN (Reason: sleep) Qty: 30 5RF metoprolol tartrate 100 mg tablet 100 mg PO BID Qty: 180 8RF multivitamin Tablet 1 tab PO DAILY thiamine HCl (vitamin B1) 100 mg Tablet 100 mg PO DAILY levetiracetam 500 mg tablet 500 mg PO DAILY amitriptyline 50 mg tablet 50 mg PO BEDTIME amiodarone 200 mg tablet 200 mg PO DAILY Qty: 90 3RF Referrals: Grecia Lewis MD [Physician] - 07/13/23 Interventions: ED Discharge Assessment Last Done: 07/12/23 10:22 Discharge Date/Time: 07/11/23 20:00
--- NOTE | 2023-07-11 15:48 | ECG_ITS ---
Test Reason : STROKE LIKE SYMPTOMS Blood Pressure : / mmHG Vent. Rate : 060 BPM Atrial Rate : 060 BPM P-R Int : 158 ms QRS Dur : 086 ms QT Int : 478 ms P-R-T Axes : 054 062 041 degrees QTc Int : 478 ms Normal sinus rhythm Nonspecific ST abnormality Abnormal ECG When compared with ECG of 18-JUN-2023 04:37, Nonspecific T wave abnormality, improved in Anterolateral leads Referred By: Geraldine Herr Electronically Signed By:KIESHA OLGUIN
--- NOTE | 2023-07-11 16:12 | ED_ITS ---
HPI - General Adult General Chief complaint: General Medical Stated complaint: sent down from Cardio / stroke like symptoms Time Seen by Provider: 07/11/23 16:09 History of Present Illness HPI narrative: Patient is a 68-year-old male with a history of atrial fibrillation atrial flutter currently on Eliquis history of multiple strokes in the past. History of RI in the past. Presents today with having facial droop on the left side difficulty finding words it has been ongoing for approximately 1-2 weeks. Patient went to see his supervisor [facility] [employer] today. Sent him down for further evaluat ion of his symptoms. He has been episcop[employer] in taking his medication. Patient denies any chest pain any diaphoresis she with a fever any chills. No coughing or congestion or upper respiratory symptoms. No changes in medication. No gross new weaknesses in the upper and lower extremity. Claims he could not find the right words. This is been ongoing for about 2 weeks. Related Data Home Medications Medication Instructions Recorded Confirmed multivitamin 1 tab PO DAILY 12/30/22 07/11/23 thiamine HCl (vitamin B1) 100 mg 100 mg PO DAILY 12/30/22 07/11/23 tablet Previous Rx's Medication Instructions Recorded levetiracetam 500 mg tablet 500 mg PO BID #180 tabs 04/12/22 amitriptyline 50 mg tablet 50 mg PO DAILY #90 tabs 01/02/23 levothyroxine 50 mcg tablet 50 mcg PO DAILY #90 tabs 01/27/23 apixaban 5 mg tablet (Eliquis) 5 mg PO BID #180 tabs 02/14/23 temazepam 30 mg capsule 30 mg PO BEDTIME PRN sleep #30 caps 04/06/23 metoprolol tartrate 100 mg tablet 100 mg PO BID #180 tabs 06/27/23 amiodarone 200 mg tablet 200 mg PO DAILY #90 tabs 07/11/23 Allergies Allergy/AdvReac Type Severity Reaction Status Date / Time aspirin AdvReac Stomach Verified 07/11/23 14:23 Upset Review of Systems Review of Systems: Positive facial droop positive difficulty finding the correct words Yes all other systems are reviewed and are negative [facility] [place] Past Medical History Medical History Atrial fibrillation HTN (hypertension) Hypothyroid Knee pain Paroxysmal atrial fibrillation Seizure Stroke TIA (transient ischemic attack) Surgical History H/O laparoscopy History of ankle surgery History of appendectomy History of cardioversion History of tonsillectomy Family History Family History Father Hypertension Lymphoma Mother Hypertension Stroke Skin cancer Social History Social History Housing: Condominium Alcohol intake: never Patient Tobacco Use Status: Never used Tobacco e-Cigarette/Vaping Use: Never Used Second Hand Smoke Exposure: No Advance Directives: No Advance Directives Information Provided: Yes service: No Current occupational status: disabled Cognitive needs: No Hearing needs: No Vision needs: Yes Physical Exam ED Vital Signs: Vital Signs - 24 hr 07/11/23 15:41 Temperature 98.5 F Pulse Rate 53 Respiratory Rate 20 Blood Pressure 130/79 Pulse Oximetry 94 Oxygen Delivery Method Room Air BMI result Body Mass Index 29.1 Appearance: Alert. Oriented X3. No acute distress. Eyes: Pupils equal, round and reactive to light. ENT: Pharynx normal. Neck: Normal inspection. Neck supple. No lymph nodes noted. No crepitus CVS: Normal heart rate and rhythm. Pulses normal. Normal S1 and S2 Respiratory: No respiratory distress. Breath sounds normal. No Wheezing. No rales Abdomen: Soft and nontender. No rigidity. No distention. good BS x4 Skin: Skin warm and dry. Normal skin color. Normal skin turgor. Extremities: No lower extremity edema. Neurovascular intact to all extremities. No Lacerations. No Rash Neuro: Oriented X 3. No motor deficit. No sensory deficit. Moving all extermities. No gross slurred speech. Slight facial droop noted on the left side when compared to the right. Covering the entire side of the face. NIH Stroke Scale Internal: Initial- Upon Arrival Time: 16:15 Level of Consciousness: Alert Level of Consciousness Questions: Answers both questions correctly Level of Consciousness Commands: Performs both tasks correctly Best Gaze: Normal Visual: No visual loss Facial Palsy: Minor paralyis Motor Arm (Right): No drift Motor Arm (Left): No drift Motor Leg (Right): No drift Motor Leg (Left): No drift Limb Ataxia: Absent Sensory: Normal Best Language: No aphasia Dysarthia: Mild to moderate dysarthria Extinction and Inattention: No abnormality Score: 2 Medications Administered Discontinued Medications Generic Name Dose Route Start Last Admin Trade Name Ana PRN Reason Stop Dose Admin Iohexol 100 ml 07/11/23 17:23 07/11/23 17:24 Iohexol 350 Mg/Ml 100 Ml Infus..Btl IV 07/11/23 17:24 70 ml ONCE ONE Administration Medical Decision Making Medical Decision Making [facility] Narrative: Patient is a 68-year-old male a history of atrial flutter history of AFib on Eliquis presented today with having left-sided weakness that is been ongoing for over week along with some slurred speech. CT scan of the head was done my interpretation the CT scan of the head was negative for any acute evidence of bleeding. You with the finding noted by Radiology. CTA of the head was negative for any acute evidence of large vessel occlusion. The finding was discussed by Dr. Unger with the radiologist. My interpretation of patient's EKG showed a sinus rhythm heart rate is 60 AR QRS QTC within normal limits there is no acute ST segment elevation. Patient's sugar was over 100 there is no evidence for hypoglycemia. Given the symptom is greater than 48 hours not a candidate for endovascular intervention. Patient is on Eliquis not a candidate for tPA. Will consult hospitalist for admission. Repeat exam is grossly unchanged Differential Diagnosis Intracranial bleed, large vessel occlusion, mass Admission/Observation Consideration of admission/observation: Escalation of care including admission/observation considered Consult Healthcare Provider Management of the patient was discussed with: Hospitalist Lab Data [facility] Lab Attestation statement: I reviewed the patient's lab results. 07/11/23 16:41 07/11/23 16:41 Labs: Lab Results 07/11/23 07/11/23 07/11/23 Range/Units 16:41 16:41 16:41 WBC 8.9 (4.8-10.8) X10*3/uL RBC 3.91 L (4.60-5.80) X10*6/uL Hgb 13.0 L (14.0-18.0) g/dl Hct 38.4 L (42.0-52.0) % MCV 98.2 H (80.0-98.0) fL MCH 33.2 H (27.0-33.0) pg MCHC 33.9 (31.0-36.0) g/dl RDW 13.2 (11.0-16.0) % Plt Count 195 (160-400) X10*3/uL MPV 10.2 (9.4-12.4) fL Immature Gran % (Auto) 0.4 (0.0-0.4) % Neut % (Auto) 63.5 (45-73) % Lymph % (Auto) 22.6 (20-40) % [place] % (Auto) 9.7 (2-11) % Eos % (Auto) 3.1 (0-4) % Baso % (Auto) 0.7 (0-2) % Lymph # (Auto) 2.0 (1.2-4.9) X10*3/uL [place] # (Auto) 0.9 (0.1-1.2) X10*3/uL Eos # (Auto) 0.3 (0.0-0.4) X10*3/uL Baso # (Auto) 0.1 (0.0-0.2) X10*3/uL Abs Immat Gran (auto) 0.04 H (0.00-0.03) X10*3/uL Absolute Neuts (auto) 5.7 (2.0-8.3) x10*3/uL Absolute Nucleated RBC 0.000 (0.0-0.012) X10*3/uL Nucleated RBC % (auto) 0.0 (0.0-0.2) /100WBC PT (11.1-13.3) SEC INR (0.9-1.1) Sodium 141 (135-145) mmol/L Potassium 3.9 (3.3-5.1) mmol/L Chloride 103 (96-108) mmol/L Carbon Dioxide 29 (22-29) mmol/L Anion Gap 13 (12-20) BUN 14 (9-16) mg/dL Creatinine 1.11 (0.5-1.4) mg/dL Estim Creat Clear Calc 63.5 Estimated GFR > 60 Random Glucose 100 (60-115) mg/dL Calcium 10.1 D (8.4-10.2) mg/dL Total Bilirubin 0.5 (0.0-1.0) mg/dL AST 31 (5-37) U/L ALT 33 (0-40) U/L Alkaline Phosphatase 68 (39-117) U/L Troponin I High Sens < 2.7 (<3.5-35.0) ng/L Total Protein 7.7 (6.5-8.0) g/dL Albumin 4.4 (3.5-5.0) g/dL 07/11/23 Range/Units 16:41 WBC (4.8-10.8) X10*3/uL RBC (4.60-5.80) X10*6/uL Hgb (14.0-18.0) g/dl Hct (42.0-52.0) % MCV (80.0-98.0) fL MCH (27.0-33.0) pg MCHC (31.0-36.0) g/dl RDW (11.0-16.0) % Plt Count (160-400) X10*3/uL MPV (9.4-12.4) fL Immature Gran % (Auto) (0.0-0.4) % Neut % (Auto) (45-73) % Lymph % (Auto) (20-40) % [place] % (Auto) (2-11) % Eos % (Auto) (0-4) % Baso % (Auto) (0-2) % Lymph # (Auto) (1.2-4.9) X10*3/uL [place] # (Auto) (0.1-1.2) X10*3/uL Eos # (Auto) (0.0-0.4) X10*3/uL Baso # (Auto) (0.0-0.2) X10*3/uL Abs Immat Gran (auto) (0.00-0.03) X10*3/uL Absolute Neuts (auto) (2.0-8.3) x10*3/uL Absolute Nucleated RBC (0.0-0.012) X10*3/uL Nucleated RBC % (auto) (0.0-0.2) /100WBC PT 12.9 D (11.1-13.3) SEC INR 1.1 (0.9-1.1) Sodium (135-145) mmol/L Potassium (3.3-5.1) mmol/L Chloride (96-108) mmol/L Carbon Dioxide (22-29) mmol/L Anion Gap (12-20) BUN (9-16) mg/dL Creatinine (0.5-1.4) mg/dL Estim Creat Clear Calc Estimated GFR Random Glucose (60-115) mg/dL Calcium (8.4-10.2) mg/dL Total Bilirubin (0.0-1.0) mg/dL AST (5-37) U/L ALT (0-40) U/L Alkaline Phosphatase (39-117) U/L Troponin I High Sens (<3.5-35.0) ng/L Total Protein (6.5-8.0) g/dL Albumin (3.5-5.0) g/dL Independent Interpretation I performed an independent interpretation of an: EKG and CT Scan Interpretation: My interpretation of patient's EKG showed a sinus rhythm heart rate is 86 AR QRS QTC within normal limits is no acute ST segment elevation My interpretation of the patient's CT scan grossly negative for any acute evidence of bleeding Radiology Impression Discussion of test interpretation with radiology: I discussed test interpretation with the radiologist Radiologist Impression: A finding was discussed with the radiologist by Dr. Unger Independent Historian Clinical information obtained from an independent historian. History obtained from or confirmed by: EMS External Record Review External record reviewed: Inpatient record Patient's old record including previous cardiology record in inpatient record reviewed Chronic Conditions Patient?s care impacted by: Diabetes and Hypertension AFib Discharge Plan Discharge Clinical Impression: Paroxysmal atrial fibrillation, Acute CVA (cerebrovascular accident) Patient Disposition: Admitted As Inpatient
[2023-07-11 16:45] LABS: MANUAL DIFF FLAG NO
--- NOTE | 2023-07-11 16:45 | PC.NURSE ---
pt a&o x4, pleasant, calm, and cooperative. slight left sided facial droop, struggling to find words when speaking and reports blurry vision that is new. pt changed over to hospital attire, EKG obtained, IV established, and labs sent. pt currently resting quietly on stretcher in no apparent distress. rr even/unlabored. call gonzalez within reach.
[2023-07-11 16:53] LABS: Basophils Absolute Auto 0.1 X10*3/uL (0.0-0.2); Basophils Percent Auto 0.7 % (0-2); Eosinophils Absolute Auto 0.3 X10*3/uL (0.0-0.4); Eosinophils Percent Auto 3.1 % (0-4); Hematocrit 38.4 % (42.0-52.0); Imm Gran Abs Auto 0.04 X10*3/uL (0.00-0.03); Imm Gran Pct Auto 0.4 % (0.0-0.4); Lymphocytes Percent Auto 22.6 % (20-40); Mean Corpuscular HGB Conc 33.9 g/dl (31.0-36.0); Mean Corpuscular Hemoglobin 33.2 pg (27.0-33.0); Mean Corpuscular Volume 98.2 fL (80.0-98.0); Mean Platelet Volume 10.2 fL (9.4-12.4); Monocytes Absolute Auto 0.9 X10*3/uL (0.1-1.2); Monocytes Percent Auto 9.7 % (2-11); Neutrophils Absolute Auto 5.7 x10*3/uL (2.0-8.3); Neutrophils Percent Auto 63.5 % (45-73); Platelet Count 195 X10*3/uL (160-400); Red Blood Count 3.91 X10*6/uL (4.60-5.80); Red Cell Distribution Width 13.2 % (11.0-16.0); White Blood Count 8.9 X10*3/uL (4.8-10.8)
[2023-07-11 16:54] LABS: INTERNATIONAL NORM RATIO 1.1 (0.9-1.1); Prothrombin Time 12.9 SEC (11.1-13.3)
[2023-07-11 17:02] LABS: Alanine Aminotransferase 33 U/L (0-40); Albumin Level 4.4 g/dL (3.5-5.0); Alkaline Phosphatase 68 U/L (39-117); Anion Gap 13 (12-20); Aspartate Amino Transferase 31 U/L (5-37); Bilirubin Total 0.5 mg/dL (0.0-1.0); Blood Urea Nitrogen 14 mg/dL (9-16); Calcium 10.1 mg/dL (8.4-10.2); Carbon Dioxide 29 mmol/L (22-29); Chloride 103 mmol/L (96-108); Creatinine Clr Calc Pharmacy 63.5; Estimated Glomerular Filt Rate > 60; Glucose Random 100 mg/dL (60-115); Potassium 3.9 mmol/L (3.3-5.1); Sodium 141 mmol/L (135-145); Total Protein 7.7 g/dL (6.5-8.0)
[2023-07-11 17:11] LABS: Troponin-I High Sensitivity < 2.7 ng/L (<3.5-35.0)
[2023-07-11] MEDS: iohexoL 350 MG/ML 100 ML INFUS..BTL IV (17:24)
--- NOTE | 2023-07-11 17:41 | PC.NURSE ---
pt cousin, Gabrielle Disla, called for an update on pt. with pt permission, an update was given. Gabrielle sts that she is disabled and would not be able to tile picker pt if/when discharged but that she would be able to arrange a ride for the pt. Gabrielle Disla: [phone]
--- NOTE | 2023-07-11 18:39 | PHA.MEDREC ---
Pharmacy Consult ? Medication Reconciliation Pharmacy has completed the medication reconciliation. Patient reported he ran out of amiodarone earlier this week, not sure the exact day. Patient reported he is taking Keppra once a day. Rosa Rice, TalonD
[2023-07-11 19:28] LABS: Appearance Urine Clear; Color Urine Yellow; Glucose Urine UA Negative (Negative); Leukocyte Esterase Urine Negative (Negative); Nitrite Urine Negative (Negative); Specific Gravity - Urine >= 1.030 (1.005-1.025); Urine Blood Negative (Negative); Urine Ketones Negative (Negative); Urine Protein Negative (Neg-Trace)
[2023-07-11 20:00] VITALS: BP 160/80; PULSE 58; RESP 16; TEMP 36.9; O2SAT 98
== END 2023-07-11 20:00 | disposition home or self-care (01) ==
PROVIDERS: Registered Nurse Emergency; Emergency Provider Emergency Medicine Emergency Medical Services; PCP Internal Medicine
DX: I48.0 Paroxysmal atrial fibrillation (principal); I63.9 Cerebral infarction, unspecified; R29.702 NIHSS score 2; R94.31 Abnormal electrocardiogram [ECG] [EKG]; Z79.899 Other long term (current) drug therapy; Z79.01 Long term (current) use of anticoagulants
CPT/HCPCS: 36415; 70450; 70496; 70498; 80053; 81003; 84484; 85025; 85610; 93005; 99212; 99284; Q9967

== ENCOUNTER 2023-07-18 11:06 | Outpatient (AMB) | payer MEDICARE, MEDICAID, SELFPAY ==
[2023-07-18 11:09] VITALS: BP 140/92; PULSE 57; O2SAT 93; BMI 30.7
--- NOTE | 2023-07-18 11:09 | MHC.PC.OV ---
Vital Signs 07/18/23 11:09 Height 5 ft 5 in Weight 184 lb 8 oz BMI 30.7 BP 140/92 H Blood Pressure Location Lt brachial Position Sitting Pulse 57 Pulse Source Pulse Oximeter Pulse Oximetry (%) 93 Oxygen Delivery Method Room Air Intake Visit Reasons: 6 month f/u ( medications) Management Coordinator: Not Required per policy Accompanied by: Self / Same As Patient Allergies aspirin Adverse Reaction (Verified 07/18/23 11:09) Stomach Upset Medication List - Last Reconciled 07/18/23 by Mart Weathers MD amiodarone 200 mg PO DAILY amitriptyline 50 mg PO BEDTIME apixaban (Eliquis) 5 mg PO BID levetiracetam 500 mg PO DAILY levothyroxine 50 mcg PO DAILY metoprolol tartrate 100 mg PO BID multivitamin 1 tab PO DAILY temazepam 30 mg PO BEDTIME PRN thiamine HCl (vitamin B1) 100 mg PO DAILY Tobacco use date assessed: 12/27/22 Fall risk assessment: 2 + Falls in past year Last assessed Fall Risk: 07/18/23 Dental Screening Dental Screen Date: 07/18/23 Did you have a dental visit in the last 12 months?: No Did you have a dental problem in the last 6 months where you did not have access to dental care?: No Was dental information given to patient?: Patient has dentist HPI 6 month f/u ( medications) HPI Details afib tia and hypothyroidism; had an er visit for a tia and perhaps small cv; seeing cardiology for his afib [facility] Medical History (Updated 07/18/23 @ 11:29 by Mart Weathers MD) Atrial fibrillation HTN (hypertension) Hypothyroid Knee pain Paroxysmal atrial fibrillation Seizure Stroke TIA (transient ischemic attack) Surgical History H/O laparoscopy History of ankle surgery History of appendectomy History of cardioversion History of tonsillectomy Family History (Updated 07/18/23 @ 11:10 by SHANDA Farley) Father Hypertension Lymphoma Mother Hypertension Stroke Skin cancer Social History Housing: Condominium Alcohol intake: never Patient Tobacco Use Status: Never used Tobacco e-Cigarette/Vaping Use: Never Used Second Hand Smoke Exposure: No service: No Current occupational status: disabled Cognitive needs: No Hearing needs: No Vision needs: Yes Questionnaire PHQ-9 Over the last 2 weeks, how often have you been bothered by any of the following problems? 1. Little interest or pleasure in doing things: not at all 2. Feeling down, depressed, or hopeless: not at all 3. Trouble falling or staying asleep, or sleeping too much: not at all 4. Feeling tired or having little energy: not at all 5. Poor appetite or overeating: not at all 6. Feeling bad about yourself - or that you are a failure or have let yourself or your family down: not at all 7. Trouble concentrating on things, such as reading the newspaper or watching television: not at all 8. Moving or speaking so slowly that other people could have noticed. Or the opposite - being so fidgety or restless that you have been moving around a lot more than usual: not at all 9. Thoughts that you would be better off or of hurting yourself in some way: not at all Total score: 0 Depression Screening Interpretation: Negative 90063 - PHQ-9 Billing: Yes Source: Developed by Drs. Reynaldo Dimas, Marina Nance, Herve Jean and colleagues, with an educational tyron from [employer]. Thrive Questionnaire Date Thrive assessed: 12/27/22 Currently or been in a relationship where the following occur: no concerns reported AUDIT C Alcohol Use Questionnaire (AUDIT-C) 1. How often do you have a drink containing alcohol?: Never Total Score: 0 Score Reviewed/Action Taken: Yes SUNIL-7 AMB Questionnaire SUNIL-7 Date SUNIL - 7 assessed: 12/27/22 Source: Developed by Drs. Reynaldo Dimas, Herve Das and colleagues, with an educational tyron from [employer]. Review of Systems Const Denies chills, Denies headache(s) and Denies weight loss ENT Denies headache(s) Card Denies chest pain, Denies syncope, Denies irregular heart rhythm and Denies dyspnea Resp Denies chest congestion, Denies cough and Denies dyspnea GI Denies abdominal pain, Denies change in stool character, Denies nausea and Denies vomiting Musc Denies deformity and Denies joint swelling Neuro Denies syncope and Denies headache(s) Physical exam (Primary Care) Vital Signs: Last Vital Signs Pulse 57 07/18/23 11:09 BP 140/92 H 07/18/23 11:09 Pulse Ox 93 07/18/23 11:09 Oxygen Delivery Method Room Air 07/18/23 11:09 BMI result Body Mass Index 30.7 Tobacco/Smoking Status: Tobacco use Status Tobacco use date assessed 12/27/22 07/18/23 11:15 Patient Tobacco Use Status Never used Tobacco 07/18/23 11:15 e-Cigarette/Vaping Use Never Used 07/18/23 11:15 PHQ-9: PHQ-9 Score PHQ-9: Total score 0 07/18/23 11:16 Depression Screening Interpretation: Negative Thrive Assessment: Date of Thrive Assessment Date Thrive assessed 12/27/22 07/18/23 11:15 Currently or been in a relationship where the following occur: no concerns reported Advance Care Planning discussion: On file, no changes Forms completed: Health Care Proxy Const General: cooperative, healthy appearing and no acute distress Orientation/consciousness: oriented to person, oriented to place and oriented to time HENMT Head: Yes normal to inspection, Yes normocephalic and Yes atraumatic Mouth: Normal oral and palatal mucosa present and tongue normal Throat: Yes posterior oropharynx normal and Yes uvula midline Eyes General: appearance normal, both eyes and all related structures Neck Neck: Yes normal visual inspection, Yes full ROM and Yes no lymphadenopathy Thyroid: Thyroid normal Carotids: normal carotid upstroke Chest Chest palpation & inspection: normal inspection of the chest Resp Effort & Inspection: normal respiratory effort and able to speak in complete sentences Auscultation: clear to auscultation bilaterally Cardio Jugular venous distension: no JVD Palpation: normal PMI Rate: regular rate Rhythm: regular rhythm Heart sounds: S1 normal heart sound present and S2 normal heart sound present GI Inspection: Yes normal to inspection Palpation (GI): Soft to palpation and No hepatosplenomegaly present Auscultation: normal bowel sounds General: Yes no CVA tenderness Back/Spine/Pelvis Back: no CVA tenderness Skin General skin exam: no rashes or lesions noted Neuro General: oriented to person, oriented to place and oriented to time Extrem General: Yes normal to inspection and Yes full ROM Assessment and Plan Assessment & Plan (1) Hypothyroidism: Code(s): E03.9 - Hypothyroidism, unspecified Plan: check labs (2) Paroxysmal atrial fibrillation: Code(s): I48.0 - Paroxysmal atrial fibrillation Plan: as per cardiology (3) Stroke: Comment: has difficulty with speech; lives alone Code(s): I63.9 - Cerebral infarction, unspecified Plan: vna eval Orders: Referrals [facility] Referral I63.9 - Cerebral infarction, unspecified Medications: Discontinued amitriptyline 50 mg PO DAILY 90 tabs 8RF levetiracetam 500 mg PO BID 180 tabs 8RF Coding Level of Care Code Est Pt Level 4 (07073) Diagnoses Hypothyroidism E03.9 Paroxysmal atrial fibrillation I48.0 Stroke I63.9 Additional Codes Vital Signs *Quality* - Advance Care Planning discussion: On file, no changes ([id number])
== END 2023-07-18 12:23 | disposition home or self-care (01) ==
PROVIDERS: PCP Internal Medicine; Visit Provider Internal Medicine
DX: E03.9 Hypothyroidism, unspecified (principal); I48.0 Paroxysmal atrial fibrillation; I63.9 Cerebral infarction, unspecified; Z00.00 Encounter for general adult medical examination without abnormal findings
CPT/HCPCS: 1123F; 99214

== ENCOUNTER 2024-01-03 09:22 | Outpatient (AMB) | payer MEDICARE, SELFPAY ==
[2024-01-03 09:23] VITALS: BP 150/98; PULSE 67; O2SAT 99; BMI 33.0
--- NOTE | 2024-01-03 09:23 | MHC.PC.OV ---
Vital Signs 01/03/24 09:23 Height 5 ft 5 in Weight 198 lb 8 oz BMI 33.0 BP 150/98 H Blood Pressure Location Lt brachial Position Sitting Pulse 67 Pulse Source Pulse Oximeter Pulse Oximetry (%) 99 Oxygen Delivery Method Room Air Intake Visit Reasons: 3 mth follow up medications Tile Designer Required: No Burglar Alarm Superintendent: Not Required per policy Accompanied by: Self / Same As Patient Allergies aspirin Adverse Reaction (Verified 01/03/24 09:23) Stomach Upset Medication List - Last Reconciled 01/03/24 by Mart Weathers MD amiodarone 200 mg PO DAILY amitriptyline 50 mg PO BEDTIME apixaban (Eliquis) 5 mg PO BID levetiracetam 500 mg PO DAILY levothyroxine 50 mcg PO DAILY metoprolol tartrate 100 mg PO BID multivitamin 1 tab PO DAILY temazepam 30 mg PO BEDTIME PRN thiamine HCl (vitamin B1) 100 mg PO DAILY Tobacco use date assessed: 01/03/24 Fall risk assessment: 2 + Falls in past year Last assessed Fall Risk: 01/03/24 Dental Screening Dental Screen Date: 01/03/24 Did you have a dental visit in the last 12 months?: No Did you have a dental problem in the last 6 months where you did not have access to dental care?: No Was dental information given to patient?: Patient has dentist HPI 3 mth follow up medications HPI Details HTN hypothyr and afib; had several strokes a few years ago and has some balnce issues [facility] Medical History (Updated 07/18/23 @ 11:29 by Mart Weathers MD) Seizure TIA (transient ischemic attack) Stroke Hypothyroid HTN (hypertension) Paroxysmal atrial fibrillation Knee pain Atrial fibrillation Surgical History History of cardioversion History of ankle surgery H/O laparoscopy History of tonsillectomy History of appendectomy Family History Father Hypertension Lymphoma Mother Hypertension Stroke Skin cancer Social History Housing: Condominium Alcohol intake: never Patient Tobacco Use Status: Never used Tobacco e-Cigarette/Vaping Use: Never Used Second Hand Smoke Exposure: No service: No Current occupational status: disabled Cognitive needs: No Hearing needs: No Vision needs: Yes Questionnaire PHQ-9 Over the last 2 weeks, how often have you been bothered by any of the following problems? 1. Little interest or pleasure in doing things: several days 2. Feeling down, depressed, or hopeless: not at all 3. Trouble falling or staying asleep, or sleeping too much: not at all 4. Feeling tired or having little energy: not at all 5. Poor appetite or overeating: not at all 6. Feeling bad about yourself - or that you are a failure or have let yourself or your family down: not at all 7. Trouble concentrating on things, such as reading the newspaper or watching television: not at all 8. Moving or speaking so slowly that other people could have noticed. Or the opposite - being so fidgety or restless that you have been moving around a lot more than usual: not at all 9. Thoughts that you would be better off or of hurting yourself in some way: not at all Total score: 1 Depression Screening Interpretation: Negative Depression Screening Done: Yes 50826 - PHQ-9 Billing: Yes Source: Developed by Drs. Reynaldo Dimas, Marina Nance, Herve Jean and colleagues, with an educational tyron from [employer]. Thrive Questionnaire Date Thrive assessed: 01/03/24 I am a: Patient What is your living situation today?: I have a steady place to live Within the past 12 months, did the food you bought not last and you didn't have the money to get more?: Never true Within the past 12 months, did you worry whether your food would run out before you got money to buy more?: Never true Do you have trouble paying for medicines?: No Do you have trouble getting transportation to medical appointments?: No Do you have trouble paying your heating and electricity bill?: No Do you have trouble taking care of your child, family member or friend?: No Do you have trouble with day-to-day activities such as bathing, preparing meals, shopping, managing finances, etc.?: No Are you currently unemployed and looking for a job?: No Are you interested in more education?: No Please select the resources that you would like help with: None THRIVE Score: 0 AUDIT C Alcohol Use Questionnaire (AUDIT-C) 1. How often do you have a drink containing alcohol?: Never Total Score: 0 Score Reviewed/Action Taken: Yes SUNIL-7 AMB Questionnaire SUNIL-7 Date SUNIL - 7 assessed: 01/03/24 Feeling nervous, anxious, or on edge: 1 = Several days Not being able to stop or control worryin = Several days Worrying too much about different things: 0 = Not at all Trouble relaxin = Not at all Being so restless that it is hard to sit still: 0 = Not at all Becoming easily annoyed or irritable: 0 = Not at all Feeling afraid as if something awful might happen: 0 = Not at all Total SUNIL-7 score (0-4 normal; 5-9 mild; 10-14 moderate; 15-21 severe): 2 Source: Developed by Drs. Reynaldo Dimas, Marina Nance, Herve Jean and colleagues, with an educational tyron from [employer]. Review of Systems Const Denies chills, Denies headache(s) and Denies weight loss ENT Denies headache(s) Card Denies chest pain, Denies syncope, Denies irregular heart rhythm and Denies dyspnea Resp Denies chest congestion, Denies cough and Denies dyspnea GI Denies abdominal pain, Denies change in stool character, Denies nausea and Denies vomiting Musc Denies deformity and Denies joint swelling Neuro Denies syncope and Denies headache(s) Physical exam (Primary Care) Vital Signs: Last Vital Signs Pulse 67 01/03/24 09:23 BP 150/98 H 01/03/24 09:23 Pulse Ox 99 01/03/24 09:23 Oxygen Delivery Method Room Air 01/03/24 09:23 BMI result Body Mass Index 33.0 Tobacco/Smoking Status: Tobacco use Status Tobacco use date assessed 01/03/24 01/03/24 09:30 Patient Tobacco Use Status Never used Tobacco 01/03/24 09:30 e-Cigarette/Vaping Use Never Used 01/03/24 09:30 PHQ-9: PHQ-9 Score PHQ-9: Total score 1 01/03/24 09:30 Depression Screening Interpretation: Negative Thrive Assessment: Date of Thrive Assessment Date Thrive assessed 01/03/24 01/03/24 09:30 Const General: cooperative, comfortable, no acute distress and alert Neck Neck: Yes no lymphadenopathy Thyroid: Thyroid normal Resp Effort & Inspection: normal respiratory effort Auscultation: clear to auscultation bilaterally Percussion: percussion normal Cardio Jugular venous distension: no JVD Palpation: normal PMI Rate: regular rate Rhythm: regular rhythm Heart sounds: S1 normal heart sound present and S2 normal heart sound present GI Inspection: Yes normal to inspection Palpation (GI): No hepatosplenomegaly present Skin General skin exam: no rashes or lesions noted Extrem General: Yes no clubbing, cyanosis or edema Assessment and Plan Assessment & Plan (1) Hypertension: Code(s): I10 - Essential (primary) hypertension Plan: stable; same rx (2) Hypothyroidism: Code(s): E03.9 - Hypothyroidism, unspecified Plan: due for labs (3) Paroxysmal atrial fibrillation: Code(s): I48.0 - Paroxysmal atrial fibrillation Plan: should see cardiology Orders: Orders Lipid Panel Today E78.5 - Hyperlipidemia, unspecified Comprehensive [place]. Panel Fast Today N28.9 - Disorder of kidney and ureter, unspecified Prostate Specific Antigen Scr Today Z00.00 - Encounter for general adult medical examination without abnormal findings PT Evaluation and Treatment Today R29.818 - Other symptoms and signs involving the nervous system Thyroid Stimulating Hormone Today E03.9 - Hypothyroidism, unspecified Complete Blood Count Auto Diff Today D64.9 - Anemia, unspecified Coding Level of Care Code Est Pt Level 4 (88020) Diagnoses Hypertension I10 Hypothyroidism E03.9 Paroxysmal atrial fibrillation I48.0
== END 2024-01-03 09:41 | disposition home or self-care (01) ==
PROVIDERS: PCP Internal Medicine; Visit Provider Internal Medicine
DX: I10 Essential (primary) hypertension (principal); E03.9 Hypothyroidism, unspecified; I48.0 Paroxysmal atrial fibrillation
CPT/HCPCS: 99214

== ENCOUNTER 2024-07-03 09:11 | Outpatient (AMB) | payer MEDICARE, MEDICAID, SELFPAY ==
[2024-07-03 09:17] VITALS: BP 160/98; BMI 31.9
--- NOTE | 2024-07-03 09:17 | A.OFFPC_ITS ---
Vital Signs 07/03/24 09:17 Height 5 ft 5 in Weight 192 lb BMI 31.9 BP 160/98 H Blood Pressure Location Lt brachial Position Sitting Intake Visit Reasons: 6 Month F/U Allergies aspirin Adverse Reaction (Verified 07/03/24 09:21) Stomach Upset Medication List - Last Reconciled 07/04/24 by Mart Weathers MD amiodarone 200 mg PO DAILY amitriptyline 50 mg PO BEDTIME apixaban (Eliquis) 5 mg PO BID levetiracetam 500 mg PO DAILY levothyroxine 50 mcg PO DAILY metoprolol tartrate 100 mg PO BID multivitamin 1 tab PO DAILY temazepam 30 mg PO BEDTIME PRN thiamine HCl (vitamin B1) 100 mg PO DAILY Tobacco use date assessed: 01/03/24 Fall risk assessment: 2 + Falls in past year Last assessed Fall Risk: 07/03/24 Dental Screening Dental Screen Date: 01/03/24 HPI 6 Month F/U HPI Details atrial fib and hypothyroidism; due to see cardiology [facility] Medical History (Updated 07/18/23 @ 11:29 by Mart Weathers MD) Seizure TIA (transient ischemic attack) Stroke Hypothyroid HTN (hypertension) Paroxysmal atrial fibrillation Knee pain Atrial fibrillation Surgical History History of cardioversion History of ankle surgery H/O laparoscopy History of tonsillectomy History of appendectomy Family History Father Hypertension Lymphoma Mother Hypertension Stroke Skin cancer Social History Housing: Condominium Alcohol intake: never Patient Tobacco Use Status: Never used Tobacco Tobacco use type: Cigarette e-Cigarette/Vaping Use: Never Used Second Hand Smoke Exposure: No service: No Current occupational status: disabled Cognitive needs: No Hearing needs: No Vision needs: Yes Questionnaire PHQ-9 Over the last 2 weeks, how often have you been bothered by any of the following problems? 1. Little interest or pleasure in doing things: several days 2. Feeling down, depressed, or hopeless: several days 3. Trouble falling or staying asleep, or sleeping too much: nearly every day 4. Feeling tired or having little energy: several days 5. Poor appetite or overeating: not at all 6. Feeling bad about yourself - or that you are a failure or have let yourself or your family down: several days 7. Trouble concentrating on things, such as reading the newspaper or watching television: several days 8. Moving or speaking so slowly that other people could have noticed. Or the opposite - being so fidgety or restless that you have been moving around a lot more than usual: not at all 9. Thoughts that you would be better off or of hurting yourself in some way: not at all Total score: 8 Depression Screening Interpretation: Negative Depression Screening Done: Yes 19114 - PHQ-9 Billing: Yes Source: Developed by Drs. Reynaldo Dimas, Marina Nance, Herve Jean and colleagues, with an educational tyron from [employer]. Thrive Questionnaire Date Thrive assessed: 01/03/24 I am a: Patient What is your living situation today?: I have a steady place to live Within the past 12 months, did the food you bought not last and you didn't have the money to get more?: Never true Within the past 12 months, did you worry whether your food would run out before you got money to buy more?: Never true Do you have trouble paying for medicines?: No Do you have trouble getting transportation to medical appointments?: No Do you have trouble paying your heating and electricity bill?: No Do you have trouble taking care of your child, family member or friend?: No Do you have trouble with day-to-day activities such as bathing, preparing meals, shopping, managing finances, etc.?: No Are you currently unemployed and looking for a job?: No Are you interested in more education?: No Please select the resources that you would like help with: None THRIVE Score: 0 AUDIT C Alcohol Use Questionnaire (AUDIT-C) 1. How often do you have a drink containing alcohol?: Never Total Score: 0 Score Reviewed/Action Taken: Yes SUNIL-7 AMB Questionnaire SUNIL-7 Date SUNIL - 7 assessed: 01/03/24 Feeling nervous, anxious, or on edge: 1 = Several days Not being able to stop or control worryin = Several days Worrying too much about different things: 0 = Not at all Trouble relaxin = Not at all Being so restless that it is hard to sit still: 0 = Not at all Becoming easily annoyed or irritable: 0 = Not at all Feeling afraid as if something awful might happen: 0 = Not at all Total SUNIL-7 score (0-4 normal; 5-9 mild; 10-14 moderate; 15-21 severe): 2 Source: Developed by Drs. Reynaldo Dimas, Marina Nance, Herve Jean and colleagues, with an educational tyron from [employer]. Review of Systems Const Denies chills, Denies headache(s) and Denies weight loss ENT Denies headache(s) Card Denies chest pain, Denies syncope and Denies irregular heart rhythm Resp Denies chest congestion and Denies cough GI Denies abdominal pain, Denies change in stool character, Denies nausea and Denies vomiting Musc Denies deformity and Denies joint swelling Neuro Denies syncope and Denies headache(s) Physical exam (Primary Care) Vital Signs: Last Vital Signs BP 160/98 H 07/03/24 09:17 BMI result Body Mass Index 31.9 Tobacco/Smoking Status: Tobacco use Status Tobacco use date assessed 01/03/24 07/03/24 09:31 Patient Tobacco Use Status Never used Tobacco 07/03/24 09:31 Tobacco use type Cigarette 07/03/24 09:31 e-Cigarette/Vaping Use Never Used 07/03/24 09:31 PHQ-9: PHQ-9 Score PHQ-9: Total score 8 07/03/24 09:31 Depression Screening Interpretation: Negative Thrive Assessment: Date of Thrive Assessment Date Thrive assessed 01/03/24 07/03/24 09:31 Const General: cooperative, comfortable, no acute distress and alert Neck Neck: Yes no lymphadenopathy Thyroid: Thyroid normal Resp Effort & Inspection: normal respiratory effort Auscultation: clear to auscultation bilaterally Percussion: percussion normal Cardio Jugular venous distension: no JVD Palpation: normal PMI Rate: regular rate Rhythm: regular rhythm Heart sounds: S1 normal heart sound present and S2 normal heart sound present GI Inspection: Yes normal to inspection Palpation (GI): No hepatosplenomegaly present Skin General skin exam: no rashes or lesions noted Extrem General: Yes no clubbing, cyanosis or edema Assessment and Plan Assessment & Plan (1) Hypothyroidism: Code(s): E03.9 - Hypothyroidism, unspecified Plan: same rx; due for labs (2) Paroxysmal atrial fibrillation: Code(s): I48.0 - Paroxysmal atrial fibrillation Plan: ekg and labs; to see cardiology Orders: Orders Lipid Panel 07/03/24 Z13.220 - Encounter for screening for lipoid disorders Complete Blood Count Auto Diff 07/03/24 Z13.0 - Encounter for screening for diseases of the blood and blood-forming organs and certain disorders involving the immune mechanism Comprehensive [place]. Panel Fast 07/03/24 Z13.9 - Encounter for screening, unspecified Thyroid Stimulating Hormone 07/03/24 Z13.29 - Encounter for screening for other suspected endocrine disorder Referrals Cardiology Referral I48.0 - Paroxysmal atrial fibrillation Coding Level of Care Code Est Pt Level 3 (49573) Diagnoses Hypothyroidism E03.9 Paroxysmal atrial fibrillation I48.0
== END 2024-07-03 09:42 | disposition home or self-care (01) ==
PROVIDERS: PCP Internal Medicine; Visit Provider Internal Medicine
DX: E03.9 Hypothyroidism, unspecified (principal); I48.0 Paroxysmal atrial fibrillation
CPT/HCPCS: 99213

== ENCOUNTER 2024-07-03 10:26 | Outpatient (REF) | payer MEDICARE, MEDICAID, SELFPAY ==
[2024-07-03 11:05] LABS: MANUAL DIFF FLAG NO
[2024-07-03 12:10] LABS: Basophils Absolute Auto 0.1 X10*3/uL (0.0-0.2); Basophils Percent Auto 0.7 % (0-2); Eosinophils Absolute Auto 0.1 X10*3/uL (0.0-0.4); Eosinophils Percent Auto 1.3 % (0-4); Hematocrit 38.4 % (42.0-52.0); Hemoglobin 12.9 g/dl (14.0-18.0); Imm Gran Abs Auto 0.03 X10*3/uL (0.00-0.03); Imm Gran Pct Auto 0.4 % (0.0-0.4); Lymphocytes Absolute Auto 1.6 X10*3/uL (1.2-4.9); Lymphocytes Percent Auto 18.7 % (20-40); Mean Corpuscular HGB Conc 33.6 g/dl (31.0-36.0); Mean Corpuscular Volume 98.2 fL (80.0-98.0); Monocytes Absolute Auto 0.7 X10*3/uL (0.1-1.2); Monocytes Percent Auto 8.3 % (2-11); Neutrophils Absolute Auto 6.1 x10*3/uL (2.0-8.3); Neutrophils Percent Auto 70.6 % (45-73); Platelet Count 199 X10*3/uL (160-400); Red Blood Count 3.91 X10*6/uL (4.60-5.80); Red Cell Distribution Width 15.4 % (11.0-16.0); White Blood Count 8.6 X10*3/uL (4.8-10.8)
[2024-07-03 12:56] LABS: Alanine Aminotransferase 30 U/L (0-40); Albumin Level 4.4 g/dL (3.5-5.0); Alkaline Phosphatase 68 U/L (39-117); Anion Gap 14 (12-20); Aspartate Amino Transferase 38 U/L (5-37); Bilirubin Total 0.6 mg/dL (0.0-1.0); Blood Urea Nitrogen 13 mg/dL (9-16); Carbon Dioxide 25 mmol/L (22-29); Chloride 102 mmol/L (96-108); Cholesterol 149 mg/dL (<200); Estimated Glomerular Filt Rate > 60; Glucose Fasting 104 mg/dL (60-99); HDL Cholesterol 44 mg/dL (>40); LDL Cholesterol Calculated 88 mg/dL (<100); Potassium 4.9 mmol/L (3.3-5.1); Sodium 136 mmol/L (135-145); Total Protein 7.9 g/dL (6.5-8.0); Triglycerides 85 mg/dL (<150)
[2024-07-03 13:00] LABS: Prostate Specific Antigen Scr 0.74 ng/mL (<0.05-4.0)
[2024-07-03 13:01] LABS: Thyroid Stimulating Hormone 8.57 uIU/mL (0.32-4.0)
== END 2024-07-03 10:27 | disposition home or self-care (01) ==
LOC: HO.LAB 10:26
PROVIDERS: PCP Internal Medicine; Visit Provider Internal Medicine
DX: Z00.00 Encounter for general adult medical examination without abnormal findings (principal); Z13.0 Encounter for screening for diseases of the blood and blood-forming organs and certain disorders involving the immune mechanism; N28.9 Disorder of kidney and ureter, unspecified; E78.5 Hyperlipidemia, unspecified; E03.9 Hypothyroidism, unspecified; Z12.5 Encounter for screening for malignant neoplasm of prostate
CPT/HCPCS: 36415; 80053; 80061; 84153; 84443; 85025

== ENCOUNTER 2025-01-15 09:22 | Outpatient (AMB) | payer MEDICARE, MEDICAID, SELFPAY ==
--- NOTE | 2025-01-15 09:33 | A.OFFPC_ITS ---
Vital Signs 01/15/25 09:34 Height 5 ft 5 in Weight 187 lb 2 oz BMI 31.1 BP 130/60 Blood Pressure Location Lt brachial Position Sitting Temp 97.1 F Temp Source Temporal Artery Scan Intake Visit Reasons: Annual Exam Intake Note: Patient is here today for a physical. Uranium Processing Supervisor Required: No Fishing Boat Mate: Not Required per policy Accompanied by: Self / Same As Patient Allergies aspirin Adverse Reaction (Verified 01/15/25 09:34) Stomach Upset Medication List - Last Reconciled 01/16/25 by Mart Weathers MD amiodarone 200 mg PO DAILY amitriptyline 50 mg PO BEDTIME apixaban (Eliquis) 5 mg PO BID levetiracetam 500 mg PO DAILY levothyroxine 75 mcg PO DAILY metoprolol tartrate 100 mg PO BID multivitamin 1 tab PO DAILY temazepam 30 mg PO BEDTIME PRN thiamine HCl (vitamin B1) 100 mg PO DAILY Tobacco use date assessed: 01/15/25 Fall risk assessment: 1 Fall in past year Last assessed Fall Risk: 01/15/25 Dental Screening Dental Screen Date: 01/15/25 Did you have a dental visit in the last 12 months?: No Did you have a dental problem in the last 6 months where you did not have access to dental care?: No Was dental information given to patient?: No HPI Annual Exam HPI Details s/p ablation for afib; still on amiodarone and Abixapan; needs to see cardiology re stopping these [facility] Medical History (Updated 07/18/23 @ 11:29 by Mart Weathers MD) Seizure TIA (transient ischemic attack) Stroke Hypothyroid HTN (hypertension) Paroxysmal atrial fibrillation Knee pain Atrial fibrillation Surgical History History of cardioversion History of ankle surgery H/O laparoscopy History of tonsillectomy History of appendectomy Family History Father Hypertension Lymphoma Mother Hypertension Stroke Skin cancer Social History [facility] Alcohol intake: never Patient Tobacco Use Status: Never used Tobacco Tobacco use type: Cigarette e-Cigarette/Vaping Use: Never Used Second Hand Smoke Exposure: No service: No Current occupational status: disabled Cognitive needs: No Hearing needs: No Vision needs: Yes Questionnaire PHQ-9 Over the last 2 weeks, how often have you been bothered by any of the following problems? 1. Little interest or pleasure in doing things: more than half the days 2. Feeling down, depressed, or hopeless: more than half the days 3. Trouble falling or staying asleep, or sleeping too much: nearly every day 4. Feeling tired or having little energy: not at all 5. Poor appetite or overeating: more than half the days 6. Feeling bad about yourself - or that you are a failure or have let yourself or your family down: more than half the days 7. Trouble concentrating on things, such as reading the newspaper or watching television: more than half the days 8. Moving or speaking so slowly that other people could have noticed. Or the opposite - being so fidgety or restless that you have been moving around a lot more than usual: several days 9. Thoughts that you would be better off or of hurting yourself in some way: not at all Total score: 14 Depression Screening Interpretation: Negative Depression Screening Done: Yes Source: Developed by Drs. Reynaldo Dimas, Marina Nance, Herve Jean and colleagues, with an educational tyron from [employer]. Thrive Questionnaire Date Thrive assessed: 01/15/25 I am a: Patient What is your living situation today?: I have a steady place to live Within the past 12 months, did the food you bought not last and you didn't have the money to get more?: Never true Within the past 12 months, did you worry whether your food would run out before you got money to buy more?: Never true Do you have trouble paying for medicines?: No Do you have trouble getting transportation to medical appointments?: No Do you have trouble paying your heating and electricity bill?: No Do you have trouble taking care of your child, family member or friend?: No Do you have trouble with day-to-day activities such as bathing, preparing meals, shopping, managing finances, etc.?: No Are you currently unemployed and looking for a job?: No Are you interested in more education?: No Please select the resources that you would like help with: None Currently or been in a relationship where the following occur: No concerns reported THRIVE Score: 0 AUDIT C Alcohol Use Questionnaire (AUDIT-C) 1. How often do you have a drink containing alcohol?: Never Total Score: 0 SUNIL-7 AMB Questionnaire SUNIL-7 Date SUNIL - 7 assessed: 01/15/25 Feeling nervous, anxious, or on edge: 2 = More than half the days Not being able to stop or control worryin = Several days Worrying too much about different things: 1 = Several days Trouble relaxin = More than half the days Being so restless that it is hard to sit still: 2 = More than half the days Becoming easily annoyed or irritable: 3 = Nearly every day Feeling afraid as if something awful might happen: 3 = Nearly every day Total SUNIL-7 score (0-4 normal; 5-9 mild; 10-14 moderate; 15-21 severe): 14 Source: Developed by Drs. Reynaldo Dimas, Marina Nance, Herve Jean and colleagues, with an educational tyron from [employer]. Review of Systems Const Denies chills, Denies fatigue, Denies headache(s) and Denies weight loss Eyes Denies change in vision, Denies diplopia and Denies eye pain ENT Denies vertigo, Denies dizziness, Denies headache(s) and Denies nasal discharge Card Denies chest pain, Denies rapid heart rate and Denies dyspnea on exertion Resp Denies chest congestion, Denies cough, Denies pain with cough and Denies dyspnea on exertion GI Denies abdominal pain, Denies hematochezia and Denies change in bowel habits Musc Denies myalgias, Denies arthralgias and Denies joint swelling Skin/Breast Denies lesions and Denies unusual bruising Neuro Denies vertigo, Denies dizziness, Denies headache(s) and Denies focal weakness Endo Denies fatigue Physical exam (Primary Care) Vital Signs: Last Vital Signs Temp 97.1 F 01/15/25 09:34 BP 130/60 01/15/25 09:34 BMI result Body Mass Index 31.1 Tobacco/Smoking Status: Tobacco use Status Tobacco use date assessed 01/15/25 01/15/25 09:41 Patient Tobacco Use Status Never used Tobacco 01/15/25 09:41 Tobacco use type Cigarette 01/15/25 09:41 e-Cigarette/Vaping Use Never Used 01/15/25 09:41 PHQ-9: PHQ-9 Score PHQ-9: Total score 14 01/15/25 09:41 Depression Screening Interpretation: Negative Thrive Assessment: Date of Thrive Assessment Date Thrive assessed 01/15/25 01/15/25 09:41 Currently or been in a relationship where the following occur: No concerns reported Const General: cooperative, healthy appearing and no acute distress Orientation/consciousness: oriented to person, oriented to place and oriented to time HENMT Head: Yes normal to inspection, Yes normocephalic and Yes atraumatic Mouth: Normal oral and palatal mucosa present and tongue normal Throat: Yes posterior oropharynx normal and Yes uvula midline Eyes General: appearance normal, both eyes and all related structures Neck Neck: Yes normal visual inspection, Yes full ROM and Yes no lymphadenopathy Thyroid: Thyroid normal Carotids: normal carotid upstroke Chest Chest palpation & inspection: normal inspection of the chest Resp Effort & Inspection: normal respiratory effort and able to speak in complete sentences Auscultation: clear to auscultation bilaterally Cardio Jugular venous distension: no JVD Palpation: normal PMI Rate: regular rate Rhythm: regular rhythm Heart sounds: S1 normal heart sound present and S2 normal heart sound present GI Inspection: Yes normal to inspection Palpation (GI): Soft to palpation and No hepatosplenomegaly present Auscultation: normal bowel sounds General: Yes no CVA tenderness Back/Spine/Pelvis Back: no CVA tenderness Skin General skin exam: no rashes or lesions noted Neuro General: oriented to person, oriented to place and oriented to time Extrem General: Yes normal to inspection and Yes full ROM Coding Level of Care Code Est Pt Prev Care >65y(83093) Diagnoses Physical exam Z00.00 Paroxysmal atrial fibrillation I48.0 Hypothyroidism E03.9 Assessment & Plan Assessment & Plan (1) Physical exam: Code(s): Z00.00 - Encounter for general adult medical examination without abnormal findings Category: Medical Plan: stabel (2) Paroxysmal atrial fibrillation: Code(s): I48.0 - Paroxysmal atrial fibrillation Category: Medical Plan: per cardiology (3) Hypothyroidism: Code(s): E03.9 - Hypothyroidism, unspecified Category: Medical Plan: same rx
[2025-01-15 09:34] VITALS: BP 130/60; TEMP 36.2; BMI 31.1
--- OUTSIDE RECORDS SUMMARY | 2025-01-15 10:25 | XMS_ITS | Clinical Summary ---
Author Organization [facility] Address [address] [place] [address] Care Team Providers Care Tubular Stock Glass Bulb Machine Former Name Role Phone Unknown Pcp, Non Rmg Primary Care Provider Unava ilable Social History Tobacco Use Types Packs/Day Years Used Date Smoking Tobacco: Never Assessed Sex and Gender Information Value Date Recorded Sex Assigned at Not on file Legal Sex Male 8:20 AM EDT Gender Identity Not on file Sexual Orientation Not on file Plan of Treatment Health Maintenance Due Date Last Done Comments Hepatitis C Screening 1955 DTaP/Tdap/Td (1 - Tdap) 1975 Pneumococcal 50+ years (1 of 1 - PCV) 2007 Zoster (Shingrix) (1 of 2) 2007 COVID-19 Vaccine ( - 2023-2 5 season) 2024 Influenza (#1) 2024 RSV (1 - 1-dose 75+ series) 2032 Abdominal Aorta Imaging Discontinued HPV Vaccine Aged Out No longer eligi ble based on patient's age to complete this topic Hep A Aged Out No longer eligi ble based on patient's age to complete this topic Hep B Aged Out No longer eligi ble based on patient's age to complete this topic Hib Aged Out No longer eligi ble based on patient's age to complete this topic Meningococcal ACWY Aged Out No longer eligible based on patient's age to complete this topic Zoster (Zostavax) Discontinued Insurance MEDICARE PART B MEDICAID Care Teams Tubular Stock Glass Bulb Machine Former Relationship Specialty Start Date End Date Unknown Pcp, Non Rmg PCP - General 04/13/14
--- OUTSIDE RECORDS SUMMARY | 2025-01-15 10:25 | XMS_ITS | Clinical Summary ---
Author Organization [facility] Address [address] [place] [address] Phone Care Team Providers Care Access Services Representative Name Role Phone Mart Weathers MD Primary Care Provider [phone] Allergies No known active allergies Medications apixaban (ELIQUIS) 5 mg tablet Take 1 mg by mouth 2 (two) times a day. Active amitriptyline (ELAVIL) 50 mg tablet Take 1 tablet (50 mg total) by mouth at bedtime. Active aspirin 81 mg EC tablet Take 1 tablet (81 mg total) by mouth 1 (one) time each day. Active levETIRAcetam (KEPPRA) 500 mg tablet Take 1 tablet (500 mg total) by mouth 2 (two) times a day. Active levothyroxine (SYNTHROID, LEVOTHROID) 50 mcg tablet Take 1 tablet (50 mcg total) by mouth 1 (one) time each day. Active OMEGA-3 FATTY ACIDS ORAL Take by mouth. Acti ve TEMAZEPAM ORAL Take by mouth. Active amiodarone (PACERONE) 400 mg tablet Take 400 mg PO BID for one week 400 mg PO QD for one week 200 mg PO QD thereafter 3 Active Active Problems Problem Noted Date Diagnosed Date A-fib 03/31/2023 Chest pain 03/31/2023 Encounters Date Type Department Care Team Description 12/13/2024 Telephone [facility] [address] [facility] [address] [place] [address] Caro Chavez PA No Show from Last 3 Months Surgical History Surgery Date Site/Laterality Comments ABLATION Done on 08/05/2024 [place] [facility] [place] SR indications:Atrial fibrillations and atrial flutter CARDIOVERSION Done on 08/08/2024 at [facility] [place] w [place].MOHAMED QUINTANILLA inidcations:Atrail Fibrillations ABLATION DONE ON 08/05/2024 AT [facility] [place] W SR INDICATIONS:Atrial Fibrillation and Atrial flutter Medical History Medical History Date Comments Hx of seizure disorder DX:Hx of seizure disorder Delirium tremens (CMS/HCC) DX:De lirium tremens (HCC) Migraine DX:Migraine Hypothyroidism DX:Hypothyroidis m HTN (hypertension) DX:HTN (hyper tension) Social History Tobacco Use Types Packs/Day Years Used Date Smoking Tobacco: Never Smokeless Tobacco: Never Alcohol Use Standard Drinks/Week Comments Not Currently 0 (1 standard drink = 0.6 oz pur e alcohol) Sex and Gender Information Value Date Recorded Sex Assigned at Not on file Legal Sex Male 8:53 PM EST Gender Identity Not on file Sexual Orientation Not on file Obstetrics History Last Filed Vital Signs Vital Sign Reading Time Taken Comments Blood Pressure 132/80 04/04/2023 2:42 PM EDT Sit ting L Arm Pulse 143 04/04/2023 2:42 PM EDT Temperature - - Respiratory Rate - - Oxygen Saturation - - Inhaled Oxygen Concentration - - Weight 80.3 kg (177 lb) 04/04/2023 2:42 PM EDT Height 165.1 cm (5' 5 ) 04/04/2023 2:42 PM EDT Body Mass Index 29.45 04/04/2023 2:42 PM EDT Plan of Treatment Health Maintenance Due Date Last Done Comments DTaP,Tdap,and Td Vaccines (1 - Tdap) 1976 Pneumococcal Vaccine: 50+ Ye ars (1 of 1 - PCV) 2007 Zoster Vaccines (1 of 2) 2007 Cholesterol Screening (Lipid Panel) 12/08/2023 Colorectal Cancer Screening: Colonoscopy 12/08/2023 Depression Screening 12/08/2023 Falls Risk Assessment 12/08/2023 Hepatitis C Screening 12/08/2023 Medicare Annual Wellness Visit 12/08/2023 Social Influencers of Health Screening 12/08/2023 COVID-19 Vaccine (1 - 2023-2 5 season) 2024 Influenza Vaccine (#1) 2024 RSV Immunization Patients 60 + Years Old (1 - 1-dose 75+ series) 2032 HIB Vaccines Aged Out No longer eligi ble based on patient's age to complete this topic HPV Vaccines Aged Out No longer eligi ble based on patient's age to complete this topic Hepatitis A Vaccines Aged Out No long er eligible based on patient's age to complete this topic Hepatitis B Vaccines Aged Out No long er eligible based on patient's age to complete this topic IPV Vaccines Aged Out No longer eligi ble based on patient's age to complete this topic MMR Vaccines Aged Out No longer eligi ble based on patient's age to complete this topic Meningococcal ACWY Vaccine Aged Out N o longer eligible based on patient's age to complete this topic Meningococcal B Vacine Aged Out No lo nger eligible based on patient's age to complete this topic RSV Immunization Patients Un [place] 20 months Aged Out No longer eligible b ased on patient's age to complete this topic Varicella Vaccines Aged Out No longer eligible based on patient's age to complete this topic Insurance MEDICAID - [place] [employer] MEDICARE ADVANTAGE Care Teams Access Services Representative Relationship Specialty Start Date End Date Mart Weathers MD [address] [place] [address] PCP - General 03/23/23
== END 2025-01-15 09:55 | disposition home or self-care (01) ==
PROVIDERS: PCP Internal Medicine; Visit Provider Internal Medicine
DX: Z00.00 Encounter for general adult medical examination without abnormal findings (principal); I48.0 Paroxysmal atrial fibrillation; E03.9 Hypothyroidism, unspecified

== ENCOUNTER → 2025-01-15 09:22 | Outpatient (BNVA) | payer MEDICARE, MEDICAID, SELFPAY | PROVIDERS: PCP Internal Medicine; Visit Provider Internal Medicine | DX: Z00.00 Encounter for general adult medical examination without abnormal findings (principal); I48.0 Paroxysmal atrial fibrillation; E03.9 Hypothyroidism, unspecified | CPT/HCPCS: 99397 ==